=== PATIENT | male | born 1955 | race Caucasian/White ===

== ENCOUNTER 2017-06-21 07:59 | Day surgery (SDC) | payer BC ==
[~2017-06-21 07:59] MED LIST: Sodium Chloride 0.9% 10 ML Syringe FLUSH PRN
[2017-06-21] MEDS ORDERED: Lactated Ringers 1,000 ML IV SCH (09:00)
[2017-06-21] MEDS ORDERED: Propofol 200 MG/20 ML SDV IV ONE (10:00)
[2017-06-21] MEDS ORDERED: Ondansetron 4 MG/2 ML SDV IVPUSH ONE (10:00)
[2017-06-21] MEDS ORDERED: Lactated Ringers 1,000 ML IV ONE (10:00)
[2017-06-21] MEDS ORDERED: Sodium Chloride 0.9% 10 ML Syringe FLUSH PRN (11:00)
[2017-06-21 11:12] VITALS: BP 142/70
--- NOTE | 2017-06-21 17:39 | OR ---
DATE OF OPERATION: 06/21/2017 SURGEON: Herbie Pa MD PREOPERATIVE DIAGNOSES: 1. Cataract left eye. 2. Poor pupillary dilation, left eye, secondary to Flomax. POSTOPERATIVE DIAGNOSES: 1. Cataract left eye. 2. Poor pupillary dilation, left eye, secondary to Flomax. PROCEDURES: 1. Phacoemulsification of cataract left eye with placement of an Osborn model Z9002, 23.0 diopter foldable posterior chamber intraocular lens. 2. Manual pupillary dilation utilizing 6.25 mm Malyugin ring. DESCRIPTION OF PROCEDURES: Peribulbar anesthetic was performed using a mixture of 2% lidocaine with epinephrine and Wydase. The patient was then prepped and draped in usual fashion. A 3 mm fornix-based conjunctival flap was performed at the 10 o'clock position. Hemostasis was obtained using diathermy, and a 2.8 mm grooved near clear corneal incision was made. A stab incision was made into the anterior chamber at the 12 o'clock position and a second stab incision underlying the near clear corneal incision. Viscoat was instilled into the anterior chamber, and because of the patient's poor pupillary dilation, a 6.25 mm Malyugin ring was placed. A continuous tear anterior capsulotomy was then performed. Hydrodissection was accomplished with balanced salt solution and the nucleus removed in a divide and conquer fashion. The remaining cortical material was removed with the irrigation and aspiration unit. Viscoat was again instilled into the anterior chamber, and an Osborn model Z9002, 23.0 diopter foldable posterior chamber intraocular lens was placed into the capsular bag, the haptics being positioned at the 1 and 7 o'clock positions. The Malyugin ring was then removed, and residual viscoelastic was removed from the anterior chamber with the irrigation aspiration unit. The anterior chamber was reformed with Miostat. The wound was checked and noted to be watertight. The conjunctiva was secured in its original position with diathermy. 1 mL of Celestone was injected subconjunctivally. Alphagan P 0.1% and Maxitrol ointment were then placed in the patient's eye. He tolerated the above-mentioned procedures well and there were without complication. EPT was 24 seconds. Postoperative instructions as related to activities, as well as medications, were reviewed with the patient. The patient was instructed to return to see me on the day following surgery for the first postoperative check. The patient was also instructed to contact me prior to that time if the patient were to have any problems. /[id number] DEG/MODL CC: NUNO GROVER MD MTDD
== END 2017-06-21 11:34 | disposition home or self-care (01) ==
LOC: FB.SDS 07:59
PROVIDERS: ATTEND Ophthalmology
DX: E11.36 Type 2 diabetes mellitus with diabetic cataract (principal); E78.00 Pure hypercholesterolemia, unspecified; F32.9 Major depressive disorder, single episode, unspecified; K21.9 Gastro-esophageal reflux disease without esophagitis; E11.22 Type 2 diabetes mellitus with diabetic chronic kidney disease; I12.9 Hypertensive chronic kidney disease with stage 1 through stage 4 chronic kidney disease, or unspecified chronic kidney disease; N18.3 Chronic kidney disease, stage 3 (moderate); H57.09 Other anomalies of pupillary function; T44.6X5A Adverse effect of alpha-adrenoreceptor antagonists, initial encounter; Z79.899 Other long term (current) drug therapy; Z79.84 Long term (current) use of oral hypoglycemic drugs; Z88.8 Allergy status to other drugs, medicaments and biological substances; Z98.890 Other specified postprocedural states
CPT/HCPCS: 66982; 82962; C1780; J2405; J2704; J7120

== ENCOUNTER 2018-12-04 07:26 | Inpatient (IN) | payer BC ==
[2018-12-04] MEDS: Sodium Chloride 0.9% 10 ML Syringe FLUSH PRN ×5 (07:50→18:40)
[2018-12-04] MEDS ORDERED: Morphine 4 MG/ML Syringe IVPUSH ONE ×2 (07:54→07:59)
[2018-12-04] MEDS ORDERED: Morphine 2 MG/ML Syringe IVPUSH ONE ×2 (08:15→09:52)
[2018-12-04] MEDS ORDERED: Iopamidol 755 MG/ML 150 ML Bottle IV ONE (08:28)
--- NOTE | 2018-12-04 09:58 | EDM.PDOC ---
ED HPI GENERAL MEDICAL PROBLEM - General Chief Complaint: Abdominal Pain Stated Complaint: R SIDE PAIN Time Seen by Provider: 12/04/18 07:30 Source of Information: Reports: Patient, Family () History Limitations: Reports: No Limitations - History of Present Illness INITIAL COMMENTS - FREE TEXT/NARRATIVE: 63 y.o.w.m with H/O HTN, NIDDM, daily ETOH use, came to the ED with his due to acute onset of RUQ and RLQ abd. pain, which started last night. No N/V/ D. No trauma, no other acute med issues. BP 149/95 RR 16 Pulse ox 96% on RA Pulse 88 Temp 36.6 Onset Date: 12/03/18 Onset Time: 15:00 Duration: Hour(s):, Getting Worse, Intermittent Location: Reports: Abdomen Quality: Reports: Burning, Dull, Pressure, Throbbing Severity: Moderate Improves with: Reports: Medication, Rest Worsens with: Reports: Eating Associated Symptoms: Reports: No Other Symptoms Right abdomen Pain Score (Numeric/FACES): 7 - Related Data Allergies Allergy/AdvReac Type Severity Reaction Status Date / Time indomethacin sodium Allergy unknown Verified 12/04/18 11:48 [From Indocin] indomethacin [From Indocin] AdvReac Mild Nausea Verified 12/04/18 11:48 Home Meds: Home Meds Atenolol/Chlorthalidone [Tenoretic 100] 0.5 tab PO DAILY 06/17/14 [History] Carboxymethyl/Gly/Poly80/Pf [Refresh Optive Advanced Drops] 1 drop EYEBOTH ASDIRECTED PRN 06/17/14 [History] Fenofibric Acid (Choline) [Trilipix] 135 mg PO DAILY 06/17/14 [History] Lansoprazole [Prevacid] 30 mg PO DAILY 06/17/14 [History] Pravastatin [Pravachol] 40 mg PO DAILY 06/17/14 [History] SitaGLIPtin [Januvia] 100 mg PO DAILY 06/17/14 [History] Venlafaxine HCl [Venlafaxine ER] 150 mg PO DAILY 06/17/14 [History] amLODIPine/Benazepril [Lotrel 5-20 MG] 1 cap PO DAILY 06/17/14 [History] metFORMIN [Glucophage] 500 mg PO BIDM 06/17/14 [History] Cholecalciferol (Vitamin D3) [Vitamin D3] 2,000 unit PO DAILY 06/20/17 [History] Clindamycin HCl 300 mg PO Q6H 06/20/17 [History] Fluticasone Propionate [Flonase Allergy Relief] 2 spray NS DAILY PRN 06/20/17 [ History] Ketotifen [Ketotifen 0.025% Ophth Soln] 5 ml EYEBOTH DAILY PRN 06/20/17 [History ] Rosuvastatin [Crestor] 20 mg PO DAILY 06/20/17 [History] Sulfamethoxazole/Trimethoprim [Sulfamethoxazole-Tmp Ds Tablet] 1 each PO BID [History] Tamsulosin [Tamsulosin 24 Hr] 2 tab PO DAILY 06/20/17 [History] Past Medical History HEENT History: Reports: Cataract Cardiovascular History: Reports: High Cholesterol, Hypertension Gastrointestinal History: Reports: GERD Musculoskeletal History: Reports: Arthritis Psychiatric History: Reports: Depression Endocrine/Metabolic History: Reports: Diabetes, Type II, Obesity/BMI 30+ - Infectious Disease History Infectious Disease History: Reports: Chicken Pox, Measles - Past Surgical History HEENT Surgical History: Reports: Cataract Surgery, Oral Surgery GI Surgical History: Reports: Colonoscopy, EGD, Polypectomy, Other (See Below) Other GI Surgeries/Procedures: Umbilical hernia Musculoskeletal Surgical History: Reports: Arthroscopic Procedure, Shoulder Replacement, Other (See Below) Other Musculoskeletal Surgeries/Procedures:: Rotator cuff surgery Oncologic Surgical History: Reports: None Social & Family History - Family History Family Medical History: Noncontributory Cardiac: Reports: High Cholesterol, Hypertension, MD Respiratory: Reports: Other (See Below) Other Respiratory Family Hisory: MOTHER REURRENT PNEUMONIA : Reports: None OBGYN: Reports: Musculoskeletal: Reports: None Neurological: Reports: None Psychiatric: Reports: Depression Endocrine/Metabolic: Reports: Diabetes, type II Hematologic: Reports: None Oncologic: Reports: Leukemia - Tobacco Use Smoking Status *Q: Former Smoker Used Tobacco, but Quit: Yes Month/Year Tobacco Last Used: 20 years ago - Caffeine Use Caffeine Use: Reports: Soda - Recreational Drug Use Recreational Drug Use: No ED ROS GENERAL - Review of Systems Review Of Systems: See Below Constitutional: Reports: No Symptoms HEENT: Reports: No Symptoms Respiratory: Reports: No Symptoms Cardiovascular: Reports: No Symptoms Endocrine: Reports: No Symptoms GI/Abdominal: Reports: Abdominal Pain : Reports: No Symptoms Musculoskeletal: Reports: No Symptoms Skin: Reports: No Symptoms Neurological: Reports: No Symptoms Psychiatric: Reports: No Symptoms Hematologic/Lymphatic: Reports: No Symptoms Immunologic: Reports: No Symptoms ED EXAM, GI/ABD - Physical Exam Exam: See Below Exam Limited By: No Limitations General Appearance: Alert, WD/WN, Moderate Distress Eyes: Bilateral: Normal Appearance Ears: Normal External Exam Nose: Normal Inspection Throat/Mouth: Normal Inspection, Normal Lips, Normal Voice, No Airway Compromise Head: Atraumatic, Normocephalic Neck: Normal Inspection, Supple, Non-Tender Respiratory/Chest: No Respiratory Distress, Lungs Clear, Normal Breath Sounds, Chest Non-Tender Cardiovascular: Normal Peripheral Pulses, Regular Rate, Rhythm, No Edema, No Gallop GI/Abdominal Exam: Normal Bowel Sounds, Tender (RUQ and RLQ of abdomen) (Male) Exam: No Hernia Rectal (Males) Exam: Deferred Back Exam: Normal Inspection, Full Range of Motion Extremities: Normal Inspection, Normal Range of Motion, Non-Tender, Normal Capillary Refill Neurological: Alert, Oriented, CN II-XII Intact, Normal Cognition, Normal Gait Psychiatric: Normal Affect, Normal Mood Skin Exam: Warm, Dry, Intact, Normal Color, No Rash Lymphatic: No Adenopathy Course - Vital Signs Text/Narrative:: 63 y.o.w.m with H/O HTN, NIDDM, daily ETOH use, came to the ED with his due to acute onset of RUQ and RLQ abd. pain, which started last night. No N/V/ D. No trauma, no other acute med issues. BP 149/95 RR 16 Pulse ox 96% on RA Pulse 88 Temp 36.6 PE: WNWD W M with abd. pain Imaging: CT abd/pelvis: Duodenitis vs acute Pancreatitis U/S abd. limited: 2 0.7 mm galls tone in Gallbladder, CBD nl LFT's no except ALT/AST elevated 44/48 TB, DB nl Labs: Amylase 462, CBC, INR, BMP nl, LFT's no except ALT/AST elevated 44/48 TB, DB nl Alk phos nl. Lactic acid 2.0 nETOH level < 0.03 Impression: Acute Pancreatitis due to Cholelithiasis, H/O ETOH use daily Tx: NS, Morphine, Protonix 9.51 am Consultation: Dr. Rodríguez, Surgeon: U/S of abd. to R/O Gall stones 10.23 am Consultation: Dr. Rodríguez: Admit Pt to the Hospitalist, will see pt during the Day and plans surgery 10.25 am Consultation: Dr. Covarrubias, Hospitalist: Accepted the pt for admission Reexam: Pt was doing fine in the ED Plan: Admit to M/S Last Recorded V/S: Last Vital Signs Temp 37.1 C 12/04/18 11:57 Pulse 84 12/04/18 11:12 Resp 16 12/04/18 11:57 BP 160/75 H 12/04/18 11:57 Pulse Ox 95 12/04/18 11:57 - Orders/Labs/Meds Orders: Active Orders 24 hr Category Date Time Status Abdomen Ltd [US] Stat Exams 12/04/18 09:55 Taken Abdomen Pelvis w Cont [CT] Stat Exams 12/04/18 07:47 Taken Sodium Chloride 0.9% [Normal Saline] 1,000 ml Med 12/04/18 10:45 Active IV ASDIRECTED Sodium Chloride 0.9% [Saline Flush] Med 12/04/18 07:50 Active 10 ml FLUSH ASDIRECTED PRN Medication Orders Sodium Chloride (Normal Saline) 1,000 mls @ 125 mls/hr IV ASDIRECTED MICAH Last Admin: 12/04/18 10:34 Dose: 125 mls/hr Sodium Chloride (Normal Saline) 1,000 mls @ 125 mls/hr IV ASDIRECTED MICAH Morphine Sulfate (Morphine) 2 mg IVPUSH Q2H PRN PRN Reason: Pain (severe 7-10) Last Admin: 12/04/18 12:10 Dose: 2 mg Ondansetron HCl (Zofran) 4 mg IV Q4H PRN PRN Reason: Nausea/Vomiting Sodium Chloride (Saline Flush) 10 ml FLUSH ASDIRECTED PRN PRN Reason: IV Use Last Admin: 12/04/18 12:19 Dose: 10 ml Admin: 12/04/18 10:01 Dose: 10 ml Admin: 12/04/18 08:07 Dose: 10 ml Admin: 12/04/18 07:50 Dose: 10 ml Labs: Laboratory Tests 12/04/18 12/04/18 12/04/18 Range/Units 07:55 07:55 07:55 WBC 10.9 (4.5-12.0) X10-3/uL RBC 4.45 (4.30-5.75) x10(6)uL Hgb 14.1 (13.5-17.8) g/dL Hct 40.1 (30.0-51.3) % MCV 90.2 (80-96) fL MCH 31.7 (27.7-33.6) pg MCHC 35.1 (32.2-35.4) g/dL RDW 12.2 (11.5-15.5) % Plt Count 182 (125-369) X10(3)uL MPV 7.7 (7.4-10.4) fL Neut % (Auto) 81.5 (46-82) % Lymph % (Auto) 10.6 L (13-37) % [place] % (Auto) 5.3 (4-12) % Eos % (Auto) 2 (1.0-5.0) % Baso % (Auto) 1 (0-2) % Neut # (Auto) 8.8 H (1.6-8.3) # Lymph # (Auto) 1.2 (0.6-5.0) # [place] # (Auto) 0.6 (0.0-1.3) # Eos # (Auto) 0.2 (0.0-0.8) # Baso # (Auto) 0.1 (0.0-0.2) # PT 10.1 (8.7-11.1) INR 1.04 (0.89-1.13) Sodium 141 (135-145) mmol/L Potassium 4.7 (3.5-5.3) mmol/L Chloride 103 (100-110) mmol/L Carbon Dioxide 22 (21-32) mmol/L BUN 23 H (7-18) mg/dL Creatinine 1.2 (0.70-1.30) mg/dL Est Cr Clr Drug Dosing TNP Estimated GFR (MDRD) > 60 (>60) BUN/Creatinine Ratio 19.2 (9-20) Glucose 169 H (80-116) mg/dL Lactic Acid (0.4-2.2) mmol/L Calcium 9.9 (8.6-10.2) mg/dL Total Bilirubin (0.1-1.3) mg/dL Direct Bilirubin (0.10-0.20) mg/dL AST (5-25) IU/L ALT (12-36) U/L Alkaline Phosphatase (56-112) IU/L Total Protein (6.0-8.0) g/dL Albumin (3.2-4.6) g/dL Amylase (25-115) U/L Ethyl Alcohol (<0.03) % 12/04/18 12/04/18 12/04/18 Range/Units 07:55 07:55 07:55 WBC (4.5-12.0) X10-3/uL RBC (4.30-5.75) x10(6)uL Hgb (13.5-17.8) g/dL Hct (30.0-51.3) % MCV (80-96) fL MCH (27.7-33.6) pg MCHC (32.2-35.4) g/dL RDW (11.5-15.5) % Plt Count (125-369) X10(3)uL MPV (7.4-10.4) fL Neut % (Auto) (46-82) % Lymph % (Auto) (13-37) % [place] % (Auto) (4-12) % Eos % (Auto) (1.0-5.0) % Baso % (Auto) (0-2) % Neut # (Auto) (1.6-8.3) # Lymph # (Auto) (0.6-5.0) # [place] # (Auto) (0.0-1.3) # Eos # (Auto) (0.0-0.8) # Baso # (Auto) (0.0-0.2) # PT (8.7-11.1) INR (0.89-1.13) Sodium (135-145) mmol/L Potassium (3.5-5.3) mmol/L Chloride (100-110) mmol/L Carbon Dioxide (21-32) mmol/L BUN (7-18) mg/dL Creatinine (0.70-1.30) mg/dL Est Cr Clr Drug Dosing Estimated GFR (MDRD) (>60) BUN/Creatinine Ratio (9-20) Glucose (80-116) mg/dL Lactic Acid 2.0 (0.4-2.2) mmol/L Calcium (8.6-10.2) mg/dL Total Bilirubin 0.4 (0.1-1.3) mg/dL Direct Bilirubin 0.15 (0.10-0.20) mg/dL AST 44 H (5-25) IU/L ALT 49 H (12-36) U/L Alkaline Phosphatase 67 (56-112) IU/L Total Protein 8.2 H (6.0-8.0) g/dL Albumin 3.9 (3.2-4.6) g/dL Amylase 462 H* (25-115) U/L Ethyl Alcohol < 0.03 (<0.03) % Meds: Medications Generic Name Dose Route Start Last Admin Trade Name Freq PRN Reason Stop Dose Admin Sodium Chloride 1,000 mls @ 125 mls/hr 12/04/18 10:45 12/04/18 10:34 Normal Saline IV 125 mls/hr ASDIRECTED MICAH Administration Sodium Chloride 1,000 mls @ 125 mls/hr 12/04/18 10:45 Normal Saline IV ASDIRECTED MICAH Morphine Sulfate 2 mg 12/04/18 10:35 12/04/18 12:10 Morphine IVPUSH 2 mg Q2H PRN Administration Pain (severe 7-10) Ondansetron HCl 4 mg 12/04/18 10:35 Zofran IV Q4H PRN Nausea/Vomiting Sodium Chloride 10 ml 12/04/18 07:50 12/04/18 12:19 Saline Flush FLUSH 10 ml ASDIRECTED PRN Administration IV Use Discontinued Medications Generic Name Dose Route Start Last Admin Trade Name Freq PRN Reason Stop Dose Admin Iopamidol 150 ml 12/04/18 08:28 12/04/18 08:39 Isovue-370 (76%) IV 12/04/18 08:29 116 ml ONETIME ONE Administration Morphine Sulfate 2 mg 12/04/18 08:15 12/04/18 08:07 Morphine IVPUSH 12/04/18 08:16 2 mg ONETIME ONE Administration Morphine Sulfate 2 mg 12/04/18 09:52 12/04/18 09:54 Morphine IVPUSH 12/04/18 09:53 Not Given ONETIME ONE Morphine Sulfate 2 mg 12/04/18 09:52 12/04/18 10:00 Morphine IVPUSH 12/04/18 09:53 2 mg ONETIME ONE Administration Pantoprazole Sodium 40 mg 12/04/18 10:43 12/04/18 12:18 Protonix Iv IVPUSH 12/04/18 10:44 40 mg ONETIME ONE Administration Departure - Departure Time of Disposition: 11:00 Disposition: Refer to Observation Condition: Fair Clinical Impression: Gallstone pancreatitis - Discharge Information - My Orders Last 24 Hours: My Active Orders 12/04/18 07:47 Abdomen Pelvis w Cont [CT] Stat 12/04/18 07:50 Sodium Chloride 0.9% [Saline Flush] 10 ml FLUSH ASDIRECTED PRN 12/04/18 09:55 Abdomen Ltd [US] Stat 12/04/18 10:45 Sodium Chloride 0.9% [Normal Saline] 1,000 ml IV ASDIRECTED - Assessment/Plan Last 24 Hours: My Active Orders 12/04/18 07:47 Abdomen Pelvis w Cont [CT] Stat 12/04/18 07:50 Sodium Chloride 0.9% [Saline Flush] 10 ml FLUSH ASDIRECTED PRN 12/04/18 09:55 Abdomen Ltd [US] Stat 12/04/18 10:45 Sodium Chloride 0.9% [Normal Saline] 1,000 ml IV ASDIRECTED
[2018-12-04] MEDS: Sodium Chloride 0.9% 1,000 ML IV SCH (10:34)
[2018-12-04] MEDS ORDERED: Ondansetron 4 MG/2 ML SDV IV PRN (10:35)
[2018-12-04] MEDS ORDERED: Pantoprazole 40 MG Vial IVPUSH ONE (10:43)
[2018-12-04] MEDS ORDERED: Sodium Chloride 0.9% 1,000 ML IV SCH (10:45)
[2018-12-04] MEDS: Morphine 2 MG/ML Syringe IVPUSH PRN ×3 (12:10→18:37)
--- NOTE | 2018-12-04 12:51 | PCM.HP ---
H&P History of Present Illness - General Date of Service: 12/04/18 Admit Problem/Dx: Admission Diagnosis/Problem Admission Diagnosis/Problem Gallstone pancreatitis Source of Information: Patient History Limitations: Reports: No Limitations - History of Present Illness Initial Comments - Free Text/Narative: This is a 63-year-old male patient started having right upper quadrant abdominal pain last night. Got worse and came to the ER was found to have gallstone pancreatitis. He was admitted. Patient some morphine. His pain is right upper quadrant that does not radiate anywhere. His little nausea but no vomiting. He says he has some diarrhea but no abnormal color stools or blood in his stool. No dysuria, pyuria, hematuria. No fevers or chills. Right abdomen Pain Score (Numeric/FACES): 4 - Related Data Allergies/Adverse Reactions: Allergies Allergy/AdvReac Type Severity Reaction Status Date / Time indomethacin sodium Allergy unknown Verified 12/04/18 11:48 [From Indocin] indomethacin [From Indocin] AdvReac Mild Nausea Verified 12/04/18 11:48 Home Medications: Home Meds Atenolol/Chlorthalidone [Tenoretic 100] 0.5 tab PO DAILY 06/17/14 [History] Carboxymethyl/Gly/Poly80/Pf [Refresh Optive Advanced Drops] 1 drop EYEBOTH ASDIRECTED PRN 06/17/14 [History] Fenofibric Acid (Choline) [Trilipix] 135 mg PO DAILY 06/17/14 [History] Lansoprazole [Prevacid] 30 mg PO DAILY 06/17/14 [History] Pravastatin [Pravachol] 40 mg PO DAILY 06/17/14 [History] SitaGLIPtin [Januvia] 100 mg PO DAILY 06/17/14 [History] Venlafaxine HCl [Venlafaxine ER] 150 mg PO DAILY 06/17/14 [History] amLODIPine/Benazepril [Lotrel 5-20 MG] 1 cap PO DAILY 06/17/14 [History] metFORMIN [Glucophage] 500 mg PO BIDM 06/17/14 [History] Cholecalciferol (Vitamin D3) [Vitamin D3] 2,000 unit PO DAILY 06/20/17 [History] Clindamycin HCl 300 mg PO Q6H 06/20/17 [History] Fluticasone Propionate [Flonase Allergy Relief] 2 spray NS DAILY PRN 06/20/17 [ History] Ketotifen [Ketotifen 0.025% Ophth Soln] 5 ml EYEBOTH DAILY PRN 06/20/17 [History ] Rosuvastatin [Crestor] 20 mg PO DAILY 06/20/17 [History] Sulfamethoxazole/Trimethoprim [Sulfamethoxazole-Tmp Ds Tablet] 1 each PO BID [History] Tamsulosin [Tamsulosin 24 Hr] 2 tab PO DAILY 06/20/17 [History] Past Medical History HEENT History: Reports: Cataract Cardiovascular History: Reports: High Cholesterol, Hypertension Gastrointestinal History: Reports: GERD, Pancreatitis Genitourinary History: Reports: Prostate Disorder Musculoskeletal History: Reports: Arthritis Psychiatric History: Reports: Depression Endocrine/Metabolic History: Reports: Diabetes, Type II, Obesity/BMI 30+ Dermatologic History: Reports: Venous Stasis Dermatitis - Infectious Disease History Infectious Disease History: Reports: Chicken Pox, Measles - Past Surgical History HEENT Surgical History: Reports: Cataract Surgery, Oral Surgery GI Surgical History: Reports: Colonoscopy, EGD, Polypectomy, Other (See Below) Other GI Surgeries/Procedures: Umbilical hernia-not repaired Male Surgical History: Reports: None Musculoskeletal Surgical History: Reports: Arthroscopic Procedure, Shoulder Replacement, Other (See Below) Other Musculoskeletal Surgeries/Procedures:: Rotator cuff surgery Oncologic Surgical History: Reports: None Social & Family History - Family History Family Medical History: Noncontributory Cardiac: Reports: High Cholesterol, Hypertension, HI Respiratory: Reports: Other (See Below) Other Respiratory Family Hisory: MOTHER REURRENT PNEUMONIA : Reports: None OBGYN: Reports: Musculoskeletal: Reports: None Neurological: Reports: None Psychiatric: Reports: Depression Endocrine/Metabolic: Reports: Diabetes, type II Hematologic: Reports: None Oncologic: Reports: Leukemia - Tobacco Use Smoking Status *Q: Never Smoker Used Tobacco, but Quit: Yes Month/Year Tobacco Last Used: 1999 Second Hand Smoke Exposure: No - Caffeine Use Caffeine Use: Reports: Soda - Alcohol Use Days Per Week of Alcohol Use: 7 Number of Drinks Per Day: 4 Total Drinks Per Week: 28 Date of Last Drink: 12/03/18 Time of Last Drink: 18:00 - Recreational Drug Use Recreational Drug Use: No H&P Review of Systems - Review of Systems: Review Of Systems: See Below General: Reports: No Symptoms HEENT: Reports: No Symptoms Pulmonary: Reports: No Symptoms Cardiovascular: Reports: No Symptoms Gastrointestinal: Reports: Abdominal Pain, Diarrhea. Denies: Vomiting Genitourinary: Reports: No Symptoms Musculoskeletal: Reports: No Symptoms Skin: Reports: Other (Chronic rash ankles bilateral) Neurological: Reports: No Symptoms Hematologic/Lymphatic: Reports: No Symptoms Immunologic: Reports: No Symptoms Exam - Exam Exam: See Below - Vital Signs Vital Signs: Last Vital Signs Temp 98.8 F 12/04/18 11:57 Pulse 84 12/04/18 11:12 Resp 16 12/04/18 11:57 BP 160/75 H 12/04/18 11:57 Pulse Ox 95 12/04/18 11:57 Weight: 220 lb 9.6 oz - Exam General: Alert, Oriented, Cooperative HEENT: Normal Nasal Septum, Posterior Pharynx Clear, TMs Clear Neck: Supple, Trachea Midline Lungs: Clear to Auscultation, Normal Respiratory Effort Cardiovascular: Regular Rate, Regular Rhythm, Normal S1, Irregular Rhythm, Systolic Murmur, Diastolic Murmur GI/Abdominal Exam: Distended, Guarding, Tender. No: Hepatomegaly, Splenomegaly Back Exam: Normal Inspection Extremities: Normal Inspection, Non-Tender Skin: Other (Erythematous patch bilateral ankles) Neuro Extensive - Mental Status: Alert, Oriented x3, Normal Mood/Affect, Normal Cognition, Memory Intact Neuro Extensive - Motor, Sensory, Reflexes: Normal Gait Psychiatric: Alert, Normal Affect, Normal Mood - Patient Data Lab Results Last 24 hrs: Laboratory Results - last 24 hr 12/04/18 12/04/18 12/04/18 Range/Units 07:55 07:55 07:55 WBC 10.9 (4.5-12.0) X10-3/uL RBC 4.45 (4.30-5.75) x10(6)uL Hgb 14.1 (13.5-17.8) g/dL Hct 40.1 (30.0-51.3) % MCV 90.2 (80-96) fL MCH 31.7 (27.7-33.6) pg MCHC 35.1 (32.2-35.4) g/dL RDW 12.2 (11.5-15.5) % Plt Count 182 (125-369) X10(3)uL MPV 7.7 (7.4-10.4) fL Neut % (Auto) 81.5 (46-82) % Lymph % (Auto) 10.6 L (13-37) % [place] % (Auto) 5.3 (4-12) % Eos % (Auto) 2 (1.0-5.0) % Baso % (Auto) 1 (0-2) % Neut # (Auto) 8.8 H (1.6-8.3) # Lymph # (Auto) 1.2 (0.6-5.0) # [place] # (Auto) 0.6 (0.0-1.3) # Eos # (Auto) 0.2 (0.0-0.8) # Baso # (Auto) 0.1 (0.0-0.2) # PT 10.1 (8.7-11.1) INR 1.04 (0.89-1.13) Sodium 141 (135-145) mmol/L Potassium 4.7 (3.5-5.3) mmol/L Chloride 103 (100-110) mmol/L Carbon Dioxide 22 (21-32) mmol/L BUN 23 H (7-18) mg/dL Creatinine 1.2 (0.70-1.30) mg/dL Est Cr Clr Drug Dosing TNP Estimated GFR (MDRD) > 60 (>60) BUN/Creatinine Ratio 19.2 (9-20) Glucose 169 H (80-116) mg/dL Lactic Acid (0.4-2.2) mmol/L Calcium 9.9 (8.6-10.2) mg/dL Total Bilirubin (0.1-1.3) mg/dL Direct Bilirubin (0.10-0.20) mg/dL AST (5-25) IU/L ALT (12-36) U/L Alkaline Phosphatase (56-112) IU/L Total Protein (6.0-8.0) g/dL Albumin (3.2-4.6) g/dL Amylase (25-115) U/L Ethyl Alcohol (<0.03) % 12/04/18 12/04/18 12/04/18 Range/Units 07:55 07:55 07:55 WBC (4.5-12.0) X10-3/uL RBC (4.30-5.75) x10(6)uL Hgb (13.5-17.8) g/dL Hct (30.0-51.3) % MCV (80-96) fL MCH (27.7-33.6) pg MCHC (32.2-35.4) g/dL RDW (11.5-15.5) % Plt Count (125-369) X10(3)uL MPV (7.4-10.4) fL Neut % (Auto) (46-82) % Lymph % (Auto) (13-37) % [place] % (Auto) (4-12) % Eos % (Auto) (1.0-5.0) % Baso % (Auto) (0-2) % Neut # (Auto) (1.6-8.3) # Lymph # (Auto) (0.6-5.0) # [place] # (Auto) (0.0-1.3) # Eos # (Auto) (0.0-0.8) # Baso # (Auto) (0.0-0.2) # PT (8.7-11.1) INR (0.89-1.13) Sodium (135-145) mmol/L Potassium (3.5-5.3) mmol/L Chloride (100-110) mmol/L Carbon Dioxide (21-32) mmol/L BUN (7-18) mg/dL Creatinine (0.70-1.30) mg/dL Est Cr Clr Drug Dosing Estimated GFR (MDRD) (>60) BUN/Creatinine Ratio (9-20) Glucose (80-116) mg/dL Lactic Acid 2.0 (0.4-2.2) mmol/L Calcium (8.6-10.2) mg/dL Total Bilirubin 0.4 (0.1-1.3) mg/dL Direct Bilirubin 0.15 (0.10-0.20) mg/dL AST 44 H (5-25) IU/L ALT 49 H (12-36) U/L Alkaline Phosphatase 67 (56-112) IU/L Total Protein 8.2 H (6.0-8.0) g/dL Albumin 3.9 (3.2-4.6) g/dL Amylase 462 H* (25-115) U/L Ethyl Alcohol < 0.03 (<0.03) % Result Diagrams: 12/04/18 07:55 12/04/18 07:55 - Problem List (1) Acute gallstone pancreatitis SNOMED Code(s): 871083087 ICD Code: K85.10 - BILIARY ACUTE PANCREATITIS WITHOUT NECROSIS OR INFECTION Status: Acute Current Visit: Yes (2) Palliative care status SNOMED Code(s): 824359408 ICD Code: Z51.5 - ENCOUNTER FOR PALLIATIVE CARE Status: Acute Current Visit: Yes (3) Diabetes SNOMED Code(s): 92270639 ICD Code: E11.9 - TYPE 2 DIABETES MELLITUS WITHOUT COMPLICATIONS Status: Acute Current Visit: No Qualifiers: Diabetes mellitus type: type 2 Diabetes mellitus exterminator helper insulin use: without prison use (4) Hypertension SNOMED Code(s): 12359693 ICD Code: I10 - ESSENTIAL (PRIMARY) HYPERTENSION Status: Acute Current Visit: No (5) Hyperlipidemia SNOMED Code(s): 34927177 ICD Code: E78.5 - HYPERLIPIDEMIA, UNSPECIFIED Status: Acute Current Visit : No (6) Chronic alcohol use SNOMED Code(s): 181986 ICD Code: Z72.89 - OTHER PROBLEMS RELATED TO LIFESTYLE Status: Acute Current Visit: Yes Problem List Initiated/Reviewed/Updated: Yes Orders Last 24hrs: Active Orders 24 hr Category Date Time Status Patient Status [ADT] Routine ADT 12/04/18 10:35 Active Notify Provider Consults [RC] ASDIRECTED Care 12/04/18 10:40 Active Oxygen Therapy [RC] PRN Care 12/04/18 10:35 Active Up With Assistance [RC] ASDIRECTED Care 12/04/18 10:35 Active VTE/DVT Education [RC] Per Unit Routine Care 12/04/18 10:35 Active Vital Signs [RC] Q4H Care 12/04/18 10:35 Active Consult to Physician [CONS] Routine Cons 12/04/18 10:35 Ordered Nothing per Oral Now Diet [DIET] Diet 12/04/18 Breakfast Ordered Abdomen Ltd [US] Stat Exams 12/04/18 09:55 Taken Abdomen Pelvis w Cont [CT] Stat Exams 12/04/18 07:47 Taken Morphine Med 12/04/18 10:35 Active 2 mg IVPUSH Q2H PRN Ondansetron [Zofran] Med 12/04/18 10:35 Active 4 mg IV Q4H PRN Sodium Chloride 0.9% [Normal Saline] 1,000 ml Med 12/04/18 10:45 Active IV ASDIRECTED Sodium Chloride 0.9% [Normal Saline] 1,000 ml Med 12/04/18 10:45 Active IV ASDIRECTED Sodium Chloride 0.9% [Saline Flush] Med 12/04/18 07:50 Active 10 ml FLUSH ASDIRECTED PRN Resuscitation Status Routine Resus Stat 12/04/18 10:35 Ordered Medication Orders Sodium Chloride (Normal Saline) 1,000 mls @ 125 mls/hr IV ASDIRECTED MICAH Last Admin: 12/04/18 10:34 Dose: 125 mls/hr Sodium Chloride (Normal Saline) 1,000 mls @ 125 mls/hr IV ASDIRECTED MICAH Morphine Sulfate (Morphine) 2 mg IVPUSH Q2H PRN PRN Reason: Pain (severe 7-10) Last Admin: 12/04/18 12:10 Dose: 2 mg Ondansetron HCl (Zofran) 4 mg IV Q4H PRN PRN Reason: Nausea/Vomiting Sodium Chloride (Saline Flush) 10 ml FLUSH ASDIRECTED PRN PRN Reason: IV Use Last Admin: 12/04/18 12:19 Dose: 10 ml Admin: 12/04/18 10:01 Dose: 10 ml Admin: 12/04/18 08:07 Dose: 10 ml Admin: 12/04/18 07:50 Dose: 10 ml Assessment/Plan Comment:: 1. Admit to inpatient. 2. has been consult to see 3. Nothing by mouth 4. IV fluids 5. Hold off on Lovenox until we find out what surgery wants to do 6. Morphine for pain control. 7. Pills with sips.
[2018-12-04] MEDS ORDERED: Ketotifen 0.025% Ophth Soln 5 ML Bottle EYEBOTH PRN (17:31)
[2018-12-04] MEDS: Enoxaparin 40 MG/0.4 ML Syringe SUBCUT SCH (18:29)
[2018-12-05] MEDS: Morphine 2 MG/ML Syringe IVPUSH PRN ×3 (00:10→19:15)
[2018-12-05] MEDS: Sodium Chloride 0.9% 1,000 ML IV SCH ×3 (02:48→18:55)
--- NOTE | 2018-12-05 07:53 | PCM.PN ---
- General Info Date of Service: 12/05/18 Admission Dx/Problem (Free Text): Gallstone Pancreatitis Functional Status: Reports: Other (Pain remains is abdomen but improved. Did not require pain medication since midnight) - Review of Systems General: Reports: Chills (mild last night but none this am) Pulmonary: Denies: Shortness of Breath Cardiovascular: Denies: Chest Pain Gastrointestinal: Denies: Nausea (mild upon admission but now cleared), Vomiting Genitourinary: Denies: Dysuria Musculoskeletal: Denies: Leg Pain - Patient Data Vitals - Most Recent: Last Vital Signs Temp 99.9 F 12/05/18 04:00 Pulse 87 12/05/18 04:00 Resp 18 12/05/18 04:00 BP 142/82 H 12/05/18 04:00 Pulse Ox 92 L 12/05/18 04:00 Weight - Most Recent: 220 lb 9.6 oz I&O - Last 24 Hours: Intake & Output 12/04/18 12/05/18 12/05/18 22:59 06:59 14:59 Intake Total 1373 1081 Output Total 725 Balance 1373 356 Lab Results Last 24 Hours: Laboratory Results - last 24 hr 12/04/18 12/04/18 12/04/18 Range/Units 07:55 07:55 07:55 WBC 10.9 (4.5-12.0) X10-3/uL RBC 4.45 (4.30-5.75) x10(6)uL Hgb 14.1 (13.5-17.8) g/dL Hct 40.1 (30.0-51.3) % MCV 90.2 (80-96) fL MCH 31.7 (27.7-33.6) pg MCHC 35.1 (32.2-35.4) g/dL RDW 12.2 (11.5-15.5) % Plt Count 182 (125-369) X10(3)uL MPV 7.7 (7.4-10.4) fL Neut % (Auto) 81.5 (46-82) % Lymph % (Auto) 10.6 L (13-37) % [place] % (Auto) 5.3 (4-12) % Eos % (Auto) 2 (1.0-5.0) % Baso % (Auto) 1 (0-2) % Neut # (Auto) 8.8 H (1.6-8.3) # Lymph # (Auto) 1.2 (0.6-5.0) # [place] # (Auto) 0.6 (0.0-1.3) # Eos # (Auto) 0.2 (0.0-0.8) # Baso # (Auto) 0.1 (0.0-0.2) # PT 10.1 (8.7-11.1) INR 1.04 (0.89-1.13) Sodium 141 (135-145) mmol/L Potassium 4.7 (3.5-5.3) mmol/L Chloride 103 (100-110) mmol/L Carbon Dioxide 22 (21-32) mmol/L BUN 23 H (7-18) mg/dL Creatinine 1.2 (0.70-1.30) mg/dL Est Cr Clr Drug Dosing TNP Estimated GFR (MDRD) > 60 (>60) BUN/Creatinine Ratio 19.2 (9-20) Glucose 169 H (80-116) mg/dL POC Glucose (80-116) mg/dL Lactic Acid (0.4-2.2) mmol/L Calcium 9.9 (8.6-10.2) mg/dL Total Bilirubin (0.1-1.3) mg/dL Direct Bilirubin (0.10-0.20) mg/dL AST (5-25) IU/L ALT (12-36) U/L Alkaline Phosphatase (56-112) IU/L Total Protein (6.0-8.0) g/dL Albumin (3.2-4.6) g/dL Globulin g/dL Albumin/Globulin Ratio Amylase (25-115) U/L Ethyl Alcohol (<0.03) % 12/04/18 12/04/18 12/04/18 Range/Units 07:55 07:55 07:55 WBC (4.5-12.0) X10-3/uL RBC (4.30-5.75) x10(6)uL Hgb (13.5-17.8) g/dL Hct (30.0-51.3) % MCV (80-96) fL MCH (27.7-33.6) pg MCHC (32.2-35.4) g/dL RDW (11.5-15.5) % Plt Count (125-369) X10(3)uL MPV (7.4-10.4) fL Neut % (Auto) (46-82) % Lymph % (Auto) (13-37) % [place] % (Auto) (4-12) % Eos % (Auto) (1.0-5.0) % Baso % (Auto) (0-2) % Neut # (Auto) (1.6-8.3) # Lymph # (Auto) (0.6-5.0) # [place] # (Auto) (0.0-1.3) # Eos # (Auto) (0.0-0.8) # Baso # (Auto) (0.0-0.2) # PT (8.7-11.1) INR (0.89-1.13) Sodium (135-145) mmol/L Potassium (3.5-5.3) mmol/L Chloride (100-110) mmol/L Carbon Dioxide (21-32) mmol/L BUN (7-18) mg/dL Creatinine (0.70-1.30) mg/dL Est Cr Clr Drug Dosing Estimated GFR (MDRD) (>60) BUN/Creatinine Ratio (9-20) Glucose (80-116) mg/dL POC Glucose (80-116) mg/dL Lactic Acid 2.0 (0.4-2.2) mmol/L Calcium (8.6-10.2) mg/dL Total Bilirubin 0.4 (0.1-1.3) mg/dL Direct Bilirubin 0.15 (0.10-0.20) mg/dL AST 44 H (5-25) IU/L ALT 49 H (12-36) U/L Alkaline Phosphatase 67 (56-112) IU/L Total Protein 8.2 H (6.0-8.0) g/dL Albumin 3.9 (3.2-4.6) g/dL Globulin g/dL Albumin/Globulin Ratio Amylase 462 H* (25-115) U/L Ethyl Alcohol < 0.03 (<0.03) % 12/04/18 12/05/18 12/05/18 Range/Units 19:35 06:12 06:35 WBC 10.4 (4.5-12.0) X10-3/uL RBC 4.14 L (4.30-5.75) x10(6)uL Hgb 12.7 L (13.5-17.8) g/dL Hct 37.3 (30.0-51.3) % MCV 90.1 (80-96) fL MCH 30.7 (27.7-33.6) pg MCHC 34.1 (32.2-35.4) g/dL RDW 12.3 (11.5-15.5) % Plt Count 152 (125-369) X10(3)uL MPV 7.4 (7.4-10.4) fL Neut % (Auto) 83.5 H (46-82) % Lymph % (Auto) 8.3 L (13-37) % [place] % (Auto) 6.5 (4-12) % Eos % (Auto) 1 (1.0-5.0) % Baso % (Auto) 0 (0-2) % Neut # (Auto) 8.7 H (1.6-8.3) # Lymph # (Auto) 0.9 (0.6-5.0) # [place] # (Auto) 0.7 (0.0-1.3) # Eos # (Auto) 0.1 (0.0-0.8) # Baso # (Auto) 0.0 (0.0-0.2) # PT (8.7-11.1) INR (0.89-1.13) Sodium (135-145) mmol/L Potassium (3.5-5.3) mmol/L Chloride (100-110) mmol/L Carbon Dioxide (21-32) mmol/L BUN (7-18) mg/dL Creatinine (0.70-1.30) mg/dL Est Cr Clr Drug Dosing Estimated GFR (MDRD) (>60) BUN/Creatinine Ratio (9-20) Glucose (80-116) mg/dL POC Glucose 149 H 174 H (80-116) mg/dL Lactic Acid (0.4-2.2) mmol/L Calcium (8.6-10.2) mg/dL Total Bilirubin (0.1-1.3) mg/dL Direct Bilirubin (0.10-0.20) mg/dL AST (5-25) IU/L ALT (12-36) U/L Alkaline Phosphatase (56-112) IU/L Total Protein (6.0-8.0) g/dL Albumin (3.2-4.6) g/dL Globulin g/dL Albumin/Globulin Ratio Amylase (25-115) U/L Ethyl Alcohol (<0.03) % 12/05/18 Range/Units 06:35 WBC (4.5-12.0) X10-3/uL RBC (4.30-5.75) x10(6)uL Hgb (13.5-17.8) g/dL Hct (30.0-51.3) % MCV (80-96) fL MCH (27.7-33.6) pg MCHC (32.2-35.4) g/dL RDW (11.5-15.5) % Plt Count (125-369) X10(3)uL MPV (7.4-10.4) fL Neut % (Auto) (46-82) % Lymph % (Auto) (13-37) % [place] % (Auto) (4-12) % Eos % (Auto) (1.0-5.0) % Baso % (Auto) (0-2) % Neut # (Auto) (1.6-8.3) # Lymph # (Auto) (0.6-5.0) # [place] # (Auto) (0.0-1.3) # Eos # (Auto) (0.0-0.8) # Baso # (Auto) (0.0-0.2) # PT (8.7-11.1) INR (0.89-1.13) Sodium 141 (135-145) mmol/L Potassium 4.3 (3.5-5.3) mmol/L Chloride 105 (100-110) mmol/L Carbon Dioxide 26 (21-32) mmol/L BUN 13 D (7-18) mg/dL Creatinine 1.1 (0.70-1.30) mg/dL Est Cr Clr Drug Dosing 60.57 Estimated GFR (MDRD) > 60 (>60) BUN/Creatinine Ratio 11.8 (9-20) Glucose 180 H (80-116) mg/dL POC Glucose (80-116) mg/dL Lactic Acid (0.4-2.2) mmol/L Calcium 8.8 (8.6-10.2) mg/dL Total Bilirubin 0.8 (0.1-1.3) mg/dL Direct Bilirubin (0.10-0.20) mg/dL AST 22 D (5-25) IU/L ALT 29 D (12-36) U/L Alkaline Phosphatase 57 (56-112) IU/L Total Protein 7.2 (6.0-8.0) g/dL Albumin 3.1 L (3.2-4.6) g/dL Globulin 4.1 g/dL Albumin/Globulin Ratio 0.8 Amylase 180 H (25-115) U/L Ethyl Alcohol (<0.03) % Med Orders - Current: Current Medications Amlodipine Besylate (Norvasc) 5 mg PO DAILY [facility] Atenolol/Chlorthalidone (Tenoretic 50) 1 tab PO DAILY [facility] [place] Benazepril HCl (Lotensin) 20 mg PO DAILY [facility] [place] Enoxaparin Sodium (Lovenox) 40 mg SUBCUT Q24H [facility] [place] Last Admin: 12/04/18 18:29 Dose: 40 mg Sodium Chloride (Normal Saline) 1,000 mls @ 125 mls/hr IV ASDIRECTED [facility] [place] Last Admin: 12/05/18 02:48 Dose: 125 mls/hr Sodium Chloride (Normal Saline) 1,000 mls @ 125 mls/hr IV ASDIRECTED [facility] [place] Last Admin: 12/04/18 18:45 Dose: 125 mls/hr Ketotifen Fumarate (Ketotifen 0.025% Ophth Soln) 0 ml EYEBOTH DAILY PRN PRN Reason: Dry Eyes Morphine Sulfate (Morphine) 2 mg IVPUSH Q2H PRN PRN Reason: Pain (severe 7-10) Last Admin: 12/05/18 00:10 Dose: 2 mg Ondansetron HCl (Zofran) 4 mg IV Q4H PRN PRN Reason: Nausea/Vomiting Pantoprazole Sodium (Protonix) 40 mg PO ACBREAKFAST [facility] [place] Sitagliptin Phosphate (Januvia) 100 mg PO DAILY [facility] [place] Sodium Chloride (Saline Flush) 10 ml FLUSH ASDIRECTED PRN PRN Reason: IV Use Last Admin: 12/04/18 18:40 Dose: 10 ml Venlafaxine HCl (Effexor Xr) 150 mg PO DAILY MICAH Discontinued Medications Iopamidol (Isovue-370 (76%)) 150 ml IV ONETIME ONE Stop: 12/04/18 08:29 Last Admin: 12/04/18 08:39 Dose: 116 ml Morphine Sulfate (Morphine) 2 mg IVPUSH ONETIME ONE Stop: 12/04/18 08:16 Last Admin: 12/04/18 08:07 Dose: 2 mg Morphine Sulfate (Morphine) 2 mg IVPUSH ONETIME ONE Stop: 12/04/18 09:53 Last Admin: 12/04/18 09:54 Dose: Not Given Morphine Sulfate (Morphine) 2 mg IVPUSH ONETIME ONE Stop: 12/04/18 09:53 Last Admin: 12/04/18 10:00 Dose: 2 mg Pantoprazole Sodium (Protonix Iv) 40 mg IVPUSH ONETIME ONE Stop: 12/04/18 10:44 Last Admin: 12/04/18 12:18 Dose: 40 mg - Exam General: Alert, Oriented Lungs: Normal Respiratory Effort GI/Abdominal Exam: Soft, No Mass, Tender (mild on right side). No: Guarding Extremities: Non-Tender, No Pedal Edema - Problem List Review Problem List Initiated/Reviewed/Updated: Yes - My Orders Last 24 Hours: My Active Orders 12/06/18 05:00 AMYLASE [CHEM] Routine CBC WITH AUTO DIFF [HEME] Routine COMPREHENSIVE METABOLIC PN,CMP [CHEM] Routine - Assessment Assessment:: Gallstone Pancreatitis Improving Amylase better this am, WBC normal, Calcium normal, Bilirubin normal - Plan Plan:: Will continue NPO with IV hydration encourage ambulation and IS recheck labs tomorrow and if continuing to improve will plan cholecystectomy soon
--- NOTE | 2018-12-05 07:55 | CONS ---
DATE OF CONSULTATION: 12/04/2018 HISTORY: This 63-year-old male was admitted through the emergency room this morning with complaints of approximately 12-hour history of abdominal pain. The pain began in the right abdomen approximately 2100 hours last night while the patient was attempting to sleep. The pain persisted through the night. It was associated with some nausea, but no vomiting and no diarrhea. Upon presentation this morning, the patient was evaluated, and a CT scan was performed, which showed inflammation in the retroperitoneum near the pancreas. Also, an ultrasound was performed, which showed multiple small gallstones. The patient's laboratory studies were reviewed. These show a normal CBC without white blood cell count elevation and normal chemistry profile with normal liver function tests, including a normal bilirubin. The patient states he has not had pain like this before. He denies any history of fatty food intolerance, although does admit to avoiding spicy foods because of heartburn. PAST MEDICAL HISTORY: Shows no previous abdominal surgery. He has had knee and shoulder surgery, although no joint replacements. He carries diagnoses of hypertension and also a question of early diabetes. CURRENT MEDICATIONS: 1. Metformin 500 mg b.i.d. 2. Amlodipine. 3. Benazepril one tablet daily. 4. Venlafaxine 150 mg daily. 5. Januvia 100 mg daily. 6. Crestor 20 mg daily. 7. Pepcid 30 mg daily. 8. He also takes vitamins. 9. Atenolol/Chlorthalidone 1/2 tab daily. ALLERGIES: He is allergic to indomethacin. SOCIAL HISTORY: He does not smoke. He does admit to alcohol use of 3 to 4 beers per day. FAMILY HISTORY: Negative for known anesthetic complications. SOCIAL HISTORY: The patient is . 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 REVIEW OF SYSTEMS: He denies any recent cough, cold, or sore throat symptoms. He has not been experiencing any chest pain or palpitations. No shortness of breath or cough. Generally, bowel function has been satisfactory, and he has not had any difficulty voiding. He does occasionally have some arthritis pain, but no extremity swelling or weakness. PHYSICAL EXAMINATION: VITAL SIGNS: Temperature is 98.8 upon admission and more recently 100.1, blood pressure is 160/75, weight is 220 pounds. GENERAL: The patient is alert adult male. He is in no acute distress, but does complain of abdominal pain. HEENT: Head is normocephalic. There is no scleral icterus. No cervical masses are noted. HEART: Regular without murmur. LUNGS: Clear. ABDOMEN: Soft. There is no distention. I do not feel any abdominal masses. There is mild tenderness to direct palpation in the right upper quadrant. No guarding is noted at this time. EXTREMITIES: Show no calf tenderness or ankle edema. IMPRESSION: 1. Gallstone pancreatitis. 2. History of hypertension. 3. Diabetes. 4. Hyperlipidemia. 5. History of alcohol use. RECOMMENDATIONS: Agree with current plan of n.p.o. and IV hydration. We will monitor his amylase levels and once inflammation has subsided, then would recommend proceeding with cholecystectomy to prevent future episodes. I have reviewed this with the patient, and he agrees to the proposed plan. Followup laboratory studies are ordered for tomorrow morning. /[id number] TIKI/SHAWN
--- NOTE | 2018-12-05 08:00 | PCM.PN ---
- General Info Date of Service: 12/05/18 Admission Dx/Problem (Free Text): Patient states his abdominal pain is better and nauseous less. He denies any fevers or chills. - Patient Data Vitals - Most Recent: Last Vital Signs Temp 99.9 F 12/05/18 04:00 Pulse 87 12/05/18 04:00 Resp 18 12/05/18 04:00 BP 142/82 H 12/05/18 04:00 Pulse Ox 92 L 12/05/18 04:00 Weight - Most Recent: 220 lb 9.6 oz I&O - Last 24 Hours: Intake & Output 12/04/18 12/05/18 12/05/18 22:59 06:59 14:59 Intake Total 1373 1081 Output Total 725 Balance 1373 356 Lab Results Last 24 Hours: Laboratory Results - last 24 hr 12/04/18 12/04/18 12/04/18 Range/Units 07:55 07:55 07:55 WBC 10.9 (4.5-12.0) X10-3/uL RBC 4.45 (4.30-5.75) x10(6)uL Hgb 14.1 (13.5-17.8) g/dL Hct 40.1 (30.0-51.3) % MCV 90.2 (80-96) fL MCH 31.7 (27.7-33.6) pg MCHC 35.1 (32.2-35.4) g/dL RDW 12.2 (11.5-15.5) % Plt Count 182 (125-369) X10(3)uL MPV 7.7 (7.4-10.4) fL Neut % (Auto) 81.5 (46-82) % Lymph % (Auto) 10.6 L (13-37) % [place] % (Auto) 5.3 (4-12) % Eos % (Auto) 2 (1.0-5.0) % Baso % (Auto) 1 (0-2) % Neut # (Auto) 8.8 H (1.6-8.3) # Lymph # (Auto) 1.2 (0.6-5.0) # [place] # (Auto) 0.6 (0.0-1.3) # Eos # (Auto) 0.2 (0.0-0.8) # Baso # (Auto) 0.1 (0.0-0.2) # PT 10.1 (8.7-11.1) INR 1.04 (0.89-1.13) Sodium 141 (135-145) mmol/L Potassium 4.7 (3.5-5.3) mmol/L Chloride 103 (100-110) mmol/L Carbon Dioxide 22 (21-32) mmol/L BUN 23 H (7-18) mg/dL Creatinine 1.2 (0.70-1.30) mg/dL Est Cr Clr Drug Dosing TNP Estimated GFR (MDRD) > 60 (>60) BUN/Creatinine Ratio 19.2 (9-20) Glucose 169 H (80-116) mg/dL POC Glucose (80-116) mg/dL Lactic Acid (0.4-2.2) mmol/L Calcium 9.9 (8.6-10.2) mg/dL Total Bilirubin (0.1-1.3) mg/dL Direct Bilirubin (0.10-0.20) mg/dL AST (5-25) IU/L ALT (12-36) U/L Alkaline Phosphatase (56-112) IU/L Total Protein (6.0-8.0) g/dL Albumin (3.2-4.6) g/dL Globulin g/dL Albumin/Globulin Ratio Amylase (25-115) U/L Ethyl Alcohol (<0.03) % 12/04/18 12/04/18 12/04/18 Range/Units 07:55 07:55 07:55 WBC (4.5-12.0) X10-3/uL RBC (4.30-5.75) x10(6)uL Hgb (13.5-17.8) g/dL Hct (30.0-51.3) % MCV (80-96) fL MCH (27.7-33.6) pg MCHC (32.2-35.4) g/dL RDW (11.5-15.5) % Plt Count (125-369) X10(3)uL MPV (7.4-10.4) fL Neut % (Auto) (46-82) % Lymph % (Auto) (13-37) % [place] % (Auto) (4-12) % Eos % (Auto) (1.0-5.0) % Baso % (Auto) (0-2) % Neut # (Auto) (1.6-8.3) # Lymph # (Auto) (0.6-5.0) # [place] # (Auto) (0.0-1.3) # Eos # (Auto) (0.0-0.8) # Baso # (Auto) (0.0-0.2) # PT (8.7-11.1) INR (0.89-1.13) Sodium (135-145) mmol/L Potassium (3.5-5.3) mmol/L Chloride (100-110) mmol/L Carbon Dioxide (21-32) mmol/L BUN (7-18) mg/dL Creatinine (0.70-1.30) mg/dL Est Cr Clr Drug Dosing Estimated GFR (MDRD) (>60) BUN/Creatinine Ratio (9-20) Glucose (80-116) mg/dL POC Glucose (80-116) mg/dL Lactic Acid 2.0 (0.4-2.2) mmol/L Calcium (8.6-10.2) mg/dL Total Bilirubin 0.4 (0.1-1.3) mg/dL Direct Bilirubin 0.15 (0.10-0.20) mg/dL AST 44 H (5-25) IU/L ALT 49 H (12-36) U/L Alkaline Phosphatase 67 (56-112) IU/L Total Protein 8.2 H (6.0-8.0) g/dL Albumin 3.9 (3.2-4.6) g/dL Globulin g/dL Albumin/Globulin Ratio Amylase 462 H* (25-115) U/L Ethyl Alcohol < 0.03 (<0.03) % 12/04/18 12/05/18 12/05/18 Range/Units 19:35 06:12 06:35 WBC 10.4 (4.5-12.0) X10-3/uL RBC 4.14 L (4.30-5.75) x10(6)uL Hgb 12.7 L (13.5-17.8) g/dL Hct 37.3 (30.0-51.3) % MCV 90.1 (80-96) fL MCH 30.7 (27.7-33.6) pg MCHC 34.1 (32.2-35.4) g/dL RDW 12.3 (11.5-15.5) % Plt Count 152 (125-369) X10(3)uL MPV 7.4 (7.4-10.4) fL Neut % (Auto) 83.5 H (46-82) % Lymph % (Auto) 8.3 L (13-37) % [place] % (Auto) 6.5 (4-12) % Eos % (Auto) 1 (1.0-5.0) % Baso % (Auto) 0 (0-2) % Neut # (Auto) 8.7 H (1.6-8.3) # Lymph # (Auto) 0.9 (0.6-5.0) # [place] # (Auto) 0.7 (0.0-1.3) # Eos # (Auto) 0.1 (0.0-0.8) # Baso # (Auto) 0.0 (0.0-0.2) # PT (8.7-11.1) INR (0.89-1.13) Sodium (135-145) mmol/L Potassium (3.5-5.3) mmol/L Chloride (100-110) mmol/L Carbon Dioxide (21-32) mmol/L BUN (7-18) mg/dL Creatinine (0.70-1.30) mg/dL Est Cr Clr Drug Dosing Estimated GFR (MDRD) (>60) BUN/Creatinine Ratio (9-20) Glucose (80-116) mg/dL POC Glucose 149 H 174 H (80-116) mg/dL Lactic Acid (0.4-2.2) mmol/L Calcium (8.6-10.2) mg/dL Total Bilirubin (0.1-1.3) mg/dL Direct Bilirubin (0.10-0.20) mg/dL AST (5-25) IU/L ALT (12-36) U/L Alkaline Phosphatase (56-112) IU/L Total Protein (6.0-8.0) g/dL Albumin (3.2-4.6) g/dL Globulin g/dL Albumin/Globulin Ratio Amylase (25-115) U/L Ethyl Alcohol (<0.03) % 12/05/18 Range/Units 06:35 WBC (4.5-12.0) X10-3/uL RBC (4.30-5.75) x10(6)uL Hgb (13.5-17.8) g/dL Hct (30.0-51.3) % MCV (80-96) fL MCH (27.7-33.6) pg MCHC (32.2-35.4) g/dL RDW (11.5-15.5) % Plt Count (125-369) X10(3)uL MPV (7.4-10.4) fL Neut % (Auto) (46-82) % Lymph % (Auto) (13-37) % [place] % (Auto) (4-12) % Eos % (Auto) (1.0-5.0) % Baso % (Auto) (0-2) % Neut # (Auto) (1.6-8.3) # Lymph # (Auto) (0.6-5.0) # [place] # (Auto) (0.0-1.3) # Eos # (Auto) (0.0-0.8) # Baso # (Auto) (0.0-0.2) # PT (8.7-11.1) INR (0.89-1.13) Sodium 141 (135-145) mmol/L Potassium 4.3 (3.5-5.3) mmol/L Chloride 105 (100-110) mmol/L Carbon Dioxide 26 (21-32) mmol/L BUN 13 D (7-18) mg/dL Creatinine 1.1 (0.70-1.30) mg/dL Est Cr Clr Drug Dosing 60.57 Estimated GFR (MDRD) > 60 (>60) BUN/Creatinine Ratio 11.8 (9-20) Glucose 180 H (80-116) mg/dL POC Glucose (80-116) mg/dL Lactic Acid (0.4-2.2) mmol/L Calcium 8.8 (8.6-10.2) mg/dL Total Bilirubin 0.8 (0.1-1.3) mg/dL Direct Bilirubin (0.10-0.20) mg/dL AST 22 D (5-25) IU/L ALT 29 D (12-36) U/L Alkaline Phosphatase 57 (56-112) IU/L Total Protein 7.2 (6.0-8.0) g/dL Albumin 3.1 L (3.2-4.6) g/dL Globulin 4.1 g/dL Albumin/Globulin Ratio 0.8 Amylase 180 H (25-115) U/L Ethyl Alcohol (<0.03) % Med Orders - Current: Current Medications Amlodipine Besylate (Norvasc) 5 mg PO DAILY [facility] Atenolol/Chlorthalidone (Tenoretic 50) 1 tab PO DAILY [facility] Benazepril HCl (Lotensin) 20 mg PO DAILY [facility] Enoxaparin Sodium (Lovenox) 40 mg SUBCUT Q24H [facility] Last Admin: 12/04/18 18:29 Dose: 40 mg Sodium Chloride (Normal Saline) 1,000 mls @ 125 mls/hr IV ASDIRECTED [facility] Last Admin: 12/05/18 02:48 Dose: 125 mls/hr Sodium Chloride (Normal Saline) 1,000 mls @ 125 mls/hr IV ASDIRECTED [facility] Last Admin: 12/04/18 18:45 Dose: 125 mls/hr Ketotifen Fumarate (Ketotifen 0.025% Ophth Soln) 0 ml EYEBOTH DAILY PRN PRN Reason: Dry Eyes Morphine Sulfate (Morphine) 2 mg IVPUSH Q2H PRN PRN Reason: Pain (severe 7-10) Last Admin: 12/05/18 00:10 Dose: 2 mg Ondansetron HCl (Zofran) 4 mg IV Q4H PRN PRN Reason: Nausea/Vomiting Pantoprazole Sodium (Protonix) 40 mg PO ACBREAKFAST [facility] Sitagliptin Phosphate (Januvia) 100 mg PO DAILY [facility] Sodium Chloride (Saline Flush) 10 ml FLUSH ASDIRECTED PRN PRN Reason: IV Use Last Admin: 12/04/18 18:40 Dose: 10 ml Venlafaxine HCl (Effexor Xr) 150 mg PO DAILY [facility] Discontinued Medications Iopamidol (Isovue-370 (76%)) 150 ml IV ONETIME ONE Stop: 12/04/18 08:29 Last Admin: 12/04/18 08:39 Dose: 116 ml Morphine Sulfate (Morphine) 2 mg IVPUSH ONETIME ONE Stop: 12/04/18 08:16 Last Admin: 12/04/18 08:07 Dose: 2 mg Morphine Sulfate (Morphine) 2 mg IVPUSH ONETIME ONE Stop: 12/04/18 09:53 Last Admin: 12/04/18 09:54 Dose: Not Given Morphine Sulfate (Morphine) 2 mg IVPUSH ONETIME ONE Stop: 12/04/18 09:53 Last Admin: 12/04/18 10:00 Dose: 2 mg Pantoprazole Sodium (Protonix Iv) 40 mg IVPUSH ONETIME ONE Stop: 12/04/18 10:44 Last Admin: 12/04/18 12:18 Dose: 40 mg - Exam General: Alert, Oriented, Cooperative Lungs: Normal Respiratory Effort GI/Abdominal Exam: Normal Bowel Sounds, Soft, Distended, Tender (Diffuse and mild) - Problem List & Annotations (1) Acute gallstone pancreatitis SNOMED Code(s): 993617648 Code(s): K85.10 - BILIARY ACUTE PANCREATITIS WITHOUT NECROSIS OR INFECTION Status: Acute Current Visit: Yes (2) Palliative care status SNOMED Code(s): 115734699 Code(s): Z51.5 - ENCOUNTER FOR PALLIATIVE CARE Status: Acute Current Visit: Yes (3) Diabetes SNOMED Code(s): 43550504 Code(s): E11.9 - TYPE 2 DIABETES MELLITUS WITHOUT COMPLICATIONS Status: Acute Current Visit: No Qualifiers: Diabetes mellitus type: type 2 Diabetes mellitus terminal gauger insulin use: without terminal gauger use (4) Hypertension SNOMED Code(s): 69760279 Code(s): I10 - ESSENTIAL (PRIMARY) HYPERTENSION Status: Acute Current Visit: No (5) Hyperlipidemia SNOMED Code(s): 09795881 Code(s): E78.5 - HYPERLIPIDEMIA, UNSPECIFIED Status: Acute Current Visit : No (6) Chronic alcohol use SNOMED Code(s): 179895 Code(s): Z72.89 - OTHER PROBLEMS RELATED TO LIFESTYLE Status: Acute Current Visit: Yes (7) Pulmonary nodule SNOMED Code(s): 470816718 Code(s): R91.1 - SOLITARY PULMONARY NODULE Status: Acute Current Visit: Yes Annotation/Comment:: Right middle lobe (8) Cholelithiasis SNOMED Code(s): 473350518 Code(s): K80.20 - CALCULUS OF GALLBLADDER W/O CHOLECYSTITIS W/O OBSTRUCTION Status: Acute Current Visit: Yes (9) Fatty liver SNOMED Code(s): 520928104 Code(s): K76.0 - FATTY (CHANGE OF) LIVER, NOT ELSEWHERE CLASSIFIED Status: Acute Current Visit: Yes (10) Osteonecrosis SNOMED Code(s): 433791635 Code(s): M87.9 - OSTEONECROSIS, UNSPECIFIED Status: Acute Current Visit: Yes Annotation/Comment:: Femoral head bilaterally - Problem List Review Problem List Initiated/Reviewed/Updated: Yes - My Orders Last 24 Hours: My Active Orders 12/04/18 14:18 Patient Status [ADT] Routine 12/04/18 17:30 Accu Check [Blood Glucose Check, Bedside] [] 07,16 Enoxaparin [Lovenox] 40 mg SUBCUT Q24H 12/04/18 17:31 Ketotifen [Ketotifen 0.025% Ophth Soln] 0 ml EYEBOTH DAILY PRN 12/05/18 07:30 Pantoprazole [ProTONIX] 40 mg PO ACBREAKFAST 12/05/18 09:00 Atenolol/Chlorthalidone [Tenoretic 50] 1 tab PO DAILY Benazepril [Lotensin] 20 mg PO DAILY SitaGLIPtin [Januvia] 100 mg PO DAILY Venlafaxine [Effexor XR] 150 mg PO DAILY amLODIPine [Norvasc] 5 mg PO DAILY - Assessment Assessment:: Gallstone Pancreatitis Improving Amylase better this am, WBC normal, Calcium normal, Bilirubin normal - Plan Plan:: Will continue NPO with IV hydration encourage ambulation and IS recheck labs tomorrow and if continuing to improve will plan cholecystectomy soon
[2018-12-05] MEDS: Atenolol 50 MG Tab PO SCH (09:49)
[2018-12-05] MEDS: amLODIPine 5 MG Tab PO SCH (09:50)
[2018-12-05] MEDS: Chlorthalidone 25 MG Tab PO SCH (09:50)
[2018-12-05] MEDS: Venlafaxine 150 MG Cap.ER PO SCH (09:50)
[2018-12-05] MEDS: Pantoprazole 40 MG Tab.CR PO SCH (09:50)
[2018-12-05] MEDS: Enoxaparin 40 MG/0.4 ML Syringe SUBCUT SCH (17:49)
[2018-12-06] MEDS: Sodium Chloride 0.9% 1,000 ML IV SCH ×2 (02:32→10:35)
[2018-12-06] MEDS: Pantoprazole 40 MG Tab.CR PO SCH (07:25)
--- NOTE | 2018-12-06 07:51 | PCM.PN ---
- General Info Date of Service: 12/06/18 Admission Dx/Problem (Free Text): The patient states he is much better today has no fevers abdominal pain or nausea. He is passing gases not moved his bowels. - Patient Data Vitals - Most Recent: Last Vital Signs Temp 98.5 F 12/06/18 04:00 Pulse 78 12/06/18 04:00 Resp 16 12/06/18 04:00 BP 142/74 H 12/06/18 04:00 Pulse Ox 96 12/06/18 04:00 Weight - Most Recent: 220 lb 9.6 oz I&O - Last 24 Hours: Intake & Output 12/05/18 12/06/18 12/06/18 22:59 06:59 14:59 Intake Total 1238 1005 Output Total 1000 Balance 238 1005 Lab Results Last 24 Hours: Laboratory Results - last 24 hr 12/05/18 12/06/18 12/06/18 Range/Units 16:41 05:56 06:45 WBC (4.5-12.0) X10-3/uL RBC (4.30-5.75) x10(6)uL Hgb (13.5-17.8) g/dL Hct (30.0-51.3) % MCV (80-96) fL MCH (27.7-33.6) pg MCHC (32.2-35.4) g/dL RDW (11.5-15.5) % Plt Count (125-369) X10(3)uL MPV (7.4-10.4) fL Neut % (Auto) (46-82) % Lymph % (Auto) (13-37) % [place] % (Auto) (4-12) % Eos % (Auto) (1.0-5.0) % Baso % (Auto) (0-2) % Neut # (Auto) (1.6-8.3) # Lymph # (Auto) (0.6-5.0) # [place] # (Auto) (0.0-1.3) # Eos # (Auto) (0.0-0.8) # Baso # (Auto) (0.0-0.2) # Sodium 139 (135-145) mmol/L Potassium 4.0 (3.5-5.3) mmol/L Chloride 104 (100-110) mmol/L Carbon Dioxide 25 (21-32) mmol/L BUN 9 (7-18) mg/dL Creatinine 0.9 (0.70-1.30) mg/dL Est Cr Clr Drug Dosing 74.03 mL/min Estimated GFR (MDRD) > 60 (>60) BUN/Creatinine Ratio 10.0 (9-20) Glucose 139 H (80-116) mg/dL POC Glucose 128 H 148 H (80-116) mg/dL Calcium 8.5 L (8.6-10.2) mg/dL Total Bilirubin 0.7 (0.1-1.3) mg/dL AST 20 (5-25) IU/L ALT 24 D (12-36) U/L Alkaline Phosphatase 53 L (56-112) IU/L Total Protein 7.0 (6.0-8.0) g/dL Albumin 2.8 L (3.2-4.6) g/dL Globulin 4.2 g/dL Albumin/Globulin Ratio 0.7 Amylase 64 (25-115) U/L 12/06/18 Range/Units 06:45 WBC 9.8 (4.5-12.0) X10-3/uL RBC 3.88 L (4.30-5.75) x10(6)uL Hgb 11.9 L (13.5-17.8) g/dL Hct 35.1 (30.0-51.3) % MCV 90.6 (80-96) fL MCH 30.7 (27.7-33.6) pg MCHC 33.8 (32.2-35.4) g/dL RDW 12.1 (11.5-15.5) % Plt Count 135 (125-369) X10(3)uL MPV 7.6 (7.4-10.4) fL Neut % (Auto) 80.9 (46-82) % Lymph % (Auto) 9.9 L (13-37) % [place] % (Auto) 5.2 (4-12) % Eos % (Auto) 3 (1.0-5.0) % Baso % (Auto) 2 (0-2) % Neut # (Auto) 8.0 (1.6-8.3) # Lymph # (Auto) 1.0 (0.6-5.0) # [place] # (Auto) 0.5 (0.0-1.3) # Eos # (Auto) 0.2 (0.0-0.8) # Baso # (Auto) 0.1 (0.0-0.2) # Sodium (135-145) mmol/L Potassium (3.5-5.3) mmol/L Chloride (100-110) mmol/L Carbon Dioxide (21-32) mmol/L BUN (7-18) mg/dL Creatinine (0.70-1.30) mg/dL Est Cr Clr Drug Dosing mL/min Estimated GFR (MDRD) (>60) BUN/Creatinine Ratio (9-20) Glucose (80-116) mg/dL POC Glucose (80-116) mg/dL Calcium (8.6-10.2) mg/dL Total Bilirubin (0.1-1.3) mg/dL AST (5-25) IU/L ALT (12-36) U/L Alkaline Phosphatase (56-112) IU/L Total Protein (6.0-8.0) g/dL Albumin (3.2-4.6) g/dL Globulin g/dL Albumin/Globulin Ratio Amylase (25-115) U/L Med Orders - Current: Current Medications Amlodipine Besylate (Norvasc) 5 mg PO DAILY [facility] Last Admin: 12/05/18 09:50 Dose: 5 mg Atenolol (Tenormin) 50 mg PO DAILY [facility] Last Admin: 12/05/18 09:49 Dose: 50 mg Benazepril HCl (Lotensin) 20 mg PO DAILY [facility] Last Admin: 12/05/18 09:50 Dose: 20 mg Chlorthalidone (Chlorthalidone) 12.5 mg PO DAILY [facility] Last Admin: 12/05/18 09:50 Dose: 12.5 mg Enoxaparin Sodium (Lovenox) 40 mg SUBCUT Q24H [facility] Last Admin: 12/05/18 17:49 Dose: 40 mg Sodium Chloride (Normal Saline) 1,000 mls @ 125 mls/hr IV ASDIRECTED [facility] Last Admin: 12/06/18 02:32 Dose: 125 mls/hr Ketotifen Fumarate (Ketotifen 0.025% Ophth Soln) 0 ml EYEBOTH DAILY PRN PRN Reason: Dry Eyes Morphine Sulfate (Morphine) 2 mg IVPUSH Q2H PRN PRN Reason: Pain (severe 7-10) Last Admin: 12/05/18 19:15 Dose: 2 mg Ondansetron HCl (Zofran) 4 mg IV Q4H PRN PRN Reason: Nausea/Vomiting Pantoprazole Sodium (Protonix) 40 mg PO ACBREAKFAST [facility] Last Admin: 12/06/18 07:25 Dose: 40 mg Sitagliptin Phosphate (Januvia) 100 mg PO DAILY [facility] Last Admin: 12/05/18 09:50 Dose: 100 mg Sodium Chloride (Saline Flush) 10 ml FLUSH ASDIRECTED PRN PRN Reason: IV Use Last Admin: 12/04/18 18:40 Dose: 10 ml Venlafaxine HCl (Effexor Xr) 150 mg PO DAILY [facility] Last Admin: 12/05/18 09:50 Dose: 150 mg Discontinued Medications Sodium Chloride (Normal Saline) 1,000 mls @ 125 mls/hr IV ASDIRECTED [facility] Last Admin: 12/04/18 18:45 Dose: 125 mls/hr Iopamidol (Isovue-370 (76%)) 150 ml IV ONETIME ONE Stop: 12/04/18 08:29 Last Admin: 12/04/18 08:39 Dose: 116 ml Morphine Sulfate (Morphine) 2 mg IVPUSH ONETIME ONE Stop: 12/04/18 08:16 Last Admin: 12/04/18 08:07 Dose: 2 mg Morphine Sulfate (Morphine) 2 mg IVPUSH ONETIME ONE Stop: 12/04/18 09:53 Last Admin: 12/04/18 09:54 Dose: Not Given Morphine Sulfate (Morphine) 2 mg IVPUSH ONETIME ONE Stop: 12/04/18 09:53 Last Admin: 12/04/18 10:00 Dose: 2 mg Pantoprazole Sodium (Protonix Iv) 40 mg IVPUSH ONETIME ONE Stop: 12/04/18 10:44 Last Admin: 12/04/18 12:18 Dose: 40 mg - Exam General: Alert, Oriented GI/Abdominal Exam: Normal Bowel Sounds, Soft, Non-Tender, No Organomegaly, No Distention, No Abnormal Bruit, No Mass - Problem List & Annotations (1) Acute gallstone pancreatitis SNOMED Code(s): 441567239 Code(s): K85.10 - BILIARY ACUTE PANCREATITIS WITHOUT NECROSIS OR INFECTION Status: Acute Current Visit: Yes (2) Palliative care status SNOMED Code(s): 849523573 Code(s): Z51.5 - ENCOUNTER FOR PALLIATIVE CARE Status: Acute Current Visit: Yes (3) Diabetes SNOMED Code(s): 49709557 Code(s): E11.9 - TYPE 2 DIABETES MELLITUS WITHOUT COMPLICATIONS Status: Acute Current Visit: No Qualifiers: Diabetes mellitus type: type 2 Diabetes mellitus alf insulin use: without terminal press operator use (4) Hypertension SNOMED Code(s): 21043818 Code(s): I10 - ESSENTIAL (PRIMARY) HYPERTENSION Status: Acute Current Visit: No (5) Hyperlipidemia SNOMED Code(s): 90221554 Code(s): E78.5 - HYPERLIPIDEMIA, UNSPECIFIED Status: Acute Current Visit : No (6) Chronic alcohol use SNOMED Code(s): 318643 Code(s): Z72.89 - OTHER PROBLEMS RELATED TO LIFESTYLE Status: Acute Current Visit: Yes (7) Pulmonary nodule SNOMED Code(s): 899568233 Code(s): R91.1 - SOLITARY PULMONARY NODULE Status: Acute Current Visit: Yes Annotation/Comment:: Right middle lobe (8) Cholelithiasis SNOMED Code(s): 390207479 Code(s): K80.20 - CALCULUS OF GALLBLADDER W/O CHOLECYSTITIS W/O OBSTRUCTION Status: Acute Current Visit: Yes (9) Fatty liver SNOMED Code(s): 373660688 Code(s): K76.0 - FATTY (CHANGE OF) LIVER, NOT ELSEWHERE CLASSIFIED Status: Acute Current Visit: Yes (10) Osteonecrosis SNOMED Code(s): 274749758 Code(s): M87.9 - OSTEONECROSIS, UNSPECIFIED Status: Acute Current Visit: Yes Annotation/Comment:: Femoral head bilaterally - Problem List Review Problem List Initiated/Reviewed/Updated: No - My Orders Last 24 Hours: My Active Orders 12/05/18 07:30 Pantoprazole [ProTONIX] 40 mg PO ACBREAKFAST 12/05/18 09:00 Atenolol [Tenormin] 50 mg PO DAILY Benazepril [Lotensin] 20 mg PO DAILY Chlorthalidone 12.5 mg PO DAILY SitaGLIPtin [Januvia] 100 mg PO DAILY Venlafaxine [Effexor XR] 150 mg PO DAILY amLODIPine [Norvasc] 5 mg PO DAILY - Assessment Assessment:: Gallstone Pancreatitis Improving Amylase better this am, WBC normal, Calcium normal, Bilirubin normal Dr. Rodríguez to do surgery today per Dr. Rodríguez - Plan Plan:: Will continue NPO with IV hydration encourage ambulation and IS recheck labs tomorrow and if continuing to improve will plan cholecystectomy soon
--- NOTE | 2018-12-06 07:54 | PCM.PN ---
- General Info Date of Service: 12/06/18 Admission Dx/Problem (Free Text): Gallstone pancreatitis - Amylase now normal and pain minimal Functional Status: Reports: Pain Controlled (Now has minimal pain) - Review of Systems General: Denies: Fever Pulmonary: Reports: No Symptoms Gastrointestinal: Reports: Flatus. Denies: Nausea, Vomiting Musculoskeletal: Reports: Back Pain (noting that bed is not comfortable for him) - Patient Data Vitals - Most Recent: Last Vital Signs Temp 98.5 F 12/06/18 04:00 Pulse 78 12/06/18 04:00 Resp 16 12/06/18 04:00 BP 142/74 H 12/06/18 04:00 Pulse Ox 96 12/06/18 04:00 Weight - Most Recent: 220 lb 9.6 oz I&O - Last 24 Hours: Intake & Output 12/05/18 12/06/18 12/06/18 22:59 06:59 14:59 Intake Total 1238 1005 Output Total 1000 Balance 238 1005 Lab Results Last 24 Hours: Laboratory Results - last 24 hr 12/05/18 12/06/18 12/06/18 Range/Units 16:41 05:56 06:45 WBC (4.5-12.0) X10-3/uL RBC (4.30-5.75) x10(6)uL Hgb (13.5-17.8) g/dL Hct (30.0-51.3) % MCV (80-96) fL MCH (27.7-33.6) pg MCHC (32.2-35.4) g/dL RDW (11.5-15.5) % Plt Count (125-369) X10(3)uL MPV (7.4-10.4) fL Neut % (Auto) (46-82) % Lymph % (Auto) (13-37) % [place] % (Auto) (4-12) % Eos % (Auto) (1.0-5.0) % Baso % (Auto) (0-2) % Neut # (Auto) (1.6-8.3) # Lymph # (Auto) (0.6-5.0) # [place] # (Auto) (0.0-1.3) # Eos # (Auto) (0.0-0.8) # Baso # (Auto) (0.0-0.2) # Sodium 139 (135-145) mmol/L Potassium 4.0 (3.5-5.3) mmol/L Chloride 104 (100-110) mmol/L Carbon Dioxide 25 (21-32) mmol/L BUN 9 (7-18) mg/dL Creatinine 0.9 (0.70-1.30) mg/dL Est Cr Clr Drug Dosing 74.03 mL/min Estimated GFR (MDRD) > 60 (>60) BUN/Creatinine Ratio 10.0 (9-20) Glucose 139 H (80-116) mg/dL POC Glucose 128 H 148 H (80-116) mg/dL Calcium 8.5 L (8.6-10.2) mg/dL Total Bilirubin 0.7 (0.1-1.3) mg/dL AST 20 (5-25) IU/L ALT 24 D (12-36) U/L Alkaline Phosphatase 53 L (56-112) IU/L Total Protein 7.0 (6.0-8.0) g/dL Albumin 2.8 L (3.2-4.6) g/dL Globulin 4.2 g/dL Albumin/Globulin Ratio 0.7 Amylase 64 (25-115) U/L 05/15/19 Range/Units 06:45 WBC 9.8 (4.5-12.0) X10-3/uL RBC 3.88 L (4.30-5.75) x10(6)uL Hgb 11.9 L (13.5-17.8) g/dL Hct 35.1 (30.0-51.3) % MCV 90.6 (80-96) fL MCH 30.7 (27.7-33.6) pg MCHC 33.8 (32.2-35.4) g/dL RDW 12.1 (11.5-15.5) % Plt Count 135 (125-369) X10(3)uL MPV 7.6 (7.4-10.4) fL Neut % (Auto) 80.9 (46-82) % Lymph % (Auto) 9.9 L (13-37) % [place] % (Auto) 5.2 (4-12) % Eos % (Auto) 3 (1.0-5.0) % Baso % (Auto) 2 (0-2) % Neut # (Auto) 8.0 (1.6-8.3) # Lymph # (Auto) 1.0 (0.6-5.0) # [place] # (Auto) 0.5 (0.0-1.3) # Eos # (Auto) 0.2 (0.0-0.8) # Baso # (Auto) 0.1 (0.0-0.2) # Sodium (135-145) mmol/L Potassium (3.5-5.3) mmol/L Chloride (100-110) mmol/L Carbon Dioxide (21-32) mmol/L BUN (7-18) mg/dL Creatinine (0.70-1.30) mg/dL Est Cr Clr Drug Dosing mL/min Estimated GFR (MDRD) (>60) BUN/Creatinine Ratio (9-20) Glucose (80-116) mg/dL POC Glucose (80-116) mg/dL Calcium (8.6-10.2) mg/dL Total Bilirubin (0.1-1.3) mg/dL AST (5-25) IU/L ALT (12-36) U/L Alkaline Phosphatase (56-112) IU/L Total Protein (6.0-8.0) g/dL Albumin (3.2-4.6) g/dL Globulin g/dL Albumin/Globulin Ratio Amylase (25-115) U/L Med Orders - Current: Current Medications Amlodipine Besylate (Norvasc) 5 mg PO DAILY [facility] Last Admin: 12/05/18 09:50 Dose: 5 mg Atenolol (Tenormin) 50 mg PO DAILY [facility] Last Admin: 12/05/18 09:49 Dose: 50 mg Benazepril HCl (Lotensin) 20 mg PO DAILY [facility] Last Admin: 12/05/18 09:50 Dose: 20 mg Chlorthalidone (Chlorthalidone) 12.5 mg PO DAILY [facility] Last Admin: 12/05/18 09:50 Dose: 12.5 mg Enoxaparin Sodium (Lovenox) 40 mg SUBCUT Q24H [facility] Last Admin: 12/05/18 17:49 Dose: 40 mg Sodium Chloride (Normal Saline) 1,000 mls @ 125 mls/hr IV ASDIRECTED [facility] Last Admin: 12/06/18 02:32 Dose: 125 mls/hr Ketotifen Fumarate (Ketotifen 0.025% Ophth Soln) 0 ml EYEBOTH DAILY PRN PRN Reason: Dry Eyes Morphine Sulfate (Morphine) 2 mg IVPUSH Q2H PRN PRN Reason: Pain (severe 7-10) Last Admin: 12/05/18 19:15 Dose: 2 mg Ondansetron HCl (Zofran) 4 mg IV Q4H PRN PRN Reason: Nausea/Vomiting Pantoprazole Sodium (Protonix) 40 mg PO ACBREAKFAST [facility] Last Admin: 12/06/18 07:25 Dose: 40 mg Sitagliptin Phosphate (Januvia) 100 mg PO DAILY [facility] Last Admin: 12/05/18 09:50 Dose: 100 mg Sodium Chloride (Saline Flush) 10 ml FLUSH ASDIRECTED PRN PRN Reason: IV Use Last Admin: 12/04/18 18:40 Dose: 10 ml Venlafaxine HCl (Effexor Xr) 150 mg PO DAILY [facility] Last Admin: 12/05/18 09:50 Dose: 150 mg Discontinued Medications Sodium Chloride (Normal Saline) 1,000 mls @ 125 mls/hr IV ASDIRECTED [facility] Last Admin: 12/04/18 18:45 Dose: 125 mls/hr Iopamidol (Isovue-370 (76%)) 150 ml IV ONETIME ONE Stop: 12/04/18 08:29 Last Admin: 12/04/18 08:39 Dose: 116 ml Morphine Sulfate (Morphine) 2 mg IVPUSH ONETIME ONE Stop: 12/04/18 08:16 Last Admin: 12/04/18 08:07 Dose: 2 mg Morphine Sulfate (Morphine) 2 mg IVPUSH ONETIME ONE Stop: 12/04/18 09:53 Last Admin: 12/04/18 09:54 Dose: Not Given Morphine Sulfate (Morphine) 2 mg IVPUSH ONETIME ONE Stop: 12/04/18 09:53 Last Admin: 12/04/18 10:00 Dose: 2 mg Pantoprazole Sodium (Protonix Iv) 40 mg IVPUSH ONETIME ONE Stop: 12/04/18 10:44 Last Admin: 12/04/18 12:18 Dose: 40 mg - Exam General: Alert, Oriented Lungs: Normal Respiratory Effort GI/Abdominal Exam: Soft, Non-Tender - Problem List Review Problem List Initiated/Reviewed/Updated: Yes - Assessment Assessment:: Gallstone Pancreatitis - resolving Amylase now normal - Plan Plan:: Cholecystectomy this afternoon I discussed the proposed cholecystectomy with the patient. Expectations and risks reviewed. Possible need to perform laparotomy discussed. He agrees to proceed.
[2018-12-06] MEDS: Chlorthalidone 25 MG Tab PO SCH (09:25)
[2018-12-06] MEDS: Atenolol 50 MG Tab PO SCH (09:26)
[2018-12-06] MEDS: Venlafaxine 150 MG Cap.ER PO SCH (09:27)
[2018-12-06] MEDS: amLODIPine 5 MG Tab PO SCH (09:28)
[2018-12-06] MEDS ORDERED: ceFAZolin 2 GM in Premix Bag 1 BAG IV ONE (12:45)
[2018-12-06] MEDS ORDERED: Bupivacaine 0.5%/EPINEPHrine 1:200,000 50 ML MDV ONE (14:02)
--- NOTE | 2018-12-06 15:37 | PCM.OPNOTE ---
- General Post-Op/Procedure Note Date of Surgery/Procedure: 12/06/18 Operative Procedure(s): Laparoscopic Cholecystectomy. Repair of Umbilical Hernia Findings: Distended gallbladder with inflammatory fluid around it Moderate sized umbilical hernia Pre Op Diagnosis: Cholelithiasis with Gallstone Pancreatitis Post-Op Diagnosis: Same Anesthesia Technique: General ET Tube Primary Surgeon: Davonte Rodríguez Pathology: gallbladder Output, Urine Amount: 0 EBL in mLs: 50 Complications: None Condition: Good Free Text/Narrative:: Intake & Output 12/06/18 12/06/18 12/06/18 06:59 14:59 22:59 Intake Total 1005 807 Output Total 400 Balance 1005 407
[2018-12-06] MEDS ORDERED: Ondansetron 4 MG/2 ML SDV IVPUSH PRN (15:38)
[2018-12-06] MEDS ORDERED: Morphine 2 MG/ML Syringe IVPUSH PRN (15:38)
[2018-12-06] MEDS ORDERED: Acetaminophen/HYDROcodone 325-5 MG Tab PO PRN ×2 (15:38)
[2018-12-06] MEDS ORDERED: Lactated Ringers 1,000 ML IV SCH (15:45)
[2018-12-06] MEDS ORDERED: Fluticasone Propionate Nasal Spray 16 GM Bottle NASBOTH PRN (16:00)
[2018-12-06] MEDS ORDERED: metFORMIN 500 MG Tab PO SCH (18:00)
--- NOTE | 2018-12-06 18:43 | PCM.SURGPN ---
- General Info Date of Service: 12/06/18 Date of Surgery/Procedure: 12/06/18 POD#: 0 Post-Op Diagnosis: Gallstone Pancreatitis - Review of Systems Systems Review Comment:: Patient feeling well post op Tolerating diet Denies pain - Patient Data Vitals - Most Recent: Last Vital Signs Temp 97.9 F 12/06/18 16:25 Pulse 65 12/06/18 16:25 Resp 18 12/06/18 16:25 BP 127/65 12/06/18 16:25 Pulse Ox 94 L 12/06/18 17:30 Weight - Most Recent: 220 lb 9.6 oz I&O - Last 24 Hours: Intake & Output 12/06/18 12/06/18 12/06/18 06:59 14:59 22:59 Intake Total 1005 807 Output Total 400 0 Balance 1005 407 0 Lab Results Last 24 Hrs: Laboratory Results - last 24 hr 12/06/18 12/06/18 12/06/18 Range/Units 05:56 06:45 06:45 WBC 9.8 (4.5-12.0) X10-3/uL RBC 3.88 L (4.30-5.75) x10(6)uL Hgb 11.9 L (13.5-17.8) g/dL Hct 35.1 (30.0-51.3) % MCV 90.6 (80-96) fL MCH 30.7 (27.7-33.6) pg MCHC 33.8 (32.2-35.4) g/dL RDW 12.1 (11.5-15.5) % Plt Count 135 (125-369) X10(3)uL MPV 7.6 (7.4-10.4) fL Neut % (Auto) 80.9 (46-82) % Lymph % (Auto) 9.9 L (13-37) % Haines % (Auto) 5.2 (4-12) % Eos % (Auto) 3 (1.0-5.0) % Baso % (Auto) 2 (0-2) % Neut # (Auto) 8.0 (1.6-8.3) # Lymph # (Auto) 1.0 (0.6-5.0) # Haines # (Auto) 0.5 (0.0-1.3) # Eos # (Auto) 0.2 (0.0-0.8) # Baso # (Auto) 0.1 (0.0-0.2) # Sodium 139 (135-145) mmol/L Potassium 4.0 (3.5-5.3) mmol/L Chloride 104 (100-110) mmol/L Carbon Dioxide 25 (21-32) mmol/L BUN 9 (7-18) mg/dL Creatinine 0.9 (0.70-1.30) mg/dL Est Cr Clr Drug Dosing 74.03 mL/min Estimated GFR (MDRD) > 60 (>60) BUN/Creatinine Ratio 10.0 (9-20) Glucose 139 H (80-116) mg/dL POC Glucose 148 H (80-116) mg/dL Calcium 8.5 L (8.6-10.2) mg/dL Total Bilirubin 0.7 (0.1-1.3) mg/dL AST 20 (5-25) IU/L ALT 24 D (12-36) U/L Alkaline Phosphatase 53 L (56-112) IU/L Total Protein 7.0 (6.0-8.0) g/dL Albumin 2.8 L (3.2-4.6) g/dL Globulin 4.2 g/dL Albumin/Globulin Ratio 0.7 Amylase 64 (25-115) U/L Med Orders - Current: Current Medications Hydrocodone Bitart/Acetaminophen ([place] 325-5 Mg) 1 tab PO Q4H PRN PRN Reason: Pain (mild 1-3) Hydrocodone Bitart/Acetaminophen ([place] 325-5 Mg) 2 tab PO Q4H PRN PRN Reason: Pain (moderate 4-6) Amlodipine Besylate (Norvasc) 5 mg PO DAILY [facility] Last Admin: 12/06/18 09:28 Dose: 5 mg Atenolol (Tenormin) 50 mg PO DAILY [facility] Last Admin: 12/06/18 09:26 Dose: 50 mg Benazepril HCl (Lotensin) 20 mg PO DAILY [facility] Last Admin: 12/06/18 09:28 Dose: 20 mg Chlorthalidone (Chlorthalidone) 12.5 mg PO DAILY [facility] Last Admin: 12/06/18 09:25 Dose: 12.5 mg Enoxaparin Sodium (Lovenox) 40 mg SUBCUT Q24H [facility] Last Admin: 12/05/18 17:49 Dose: 40 mg Fluticasone Propionate (Flonase) 0 gm NASBOTH DAILY PRN PRN Reason: RHINITIS Sodium Chloride (Normal Saline) 1,000 mls @ 125 mls/hr IV ASDIRECTED [facility] Last Admin: 12/06/18 10:35 Dose: 125 mls/hr Lactated Ringer's (Ringers, Lactated) 1,000 mls @ 125 mls/hr IV ASDIRECTED [facility] Lactated Ringer's (Ringers, Lactated) 1,000 mls @ 125 mls/hr IV ASDIRECTED [facility] Ketotifen Fumarate (Ketotifen 0.025% Ophth Soln) 0 ml EYEBOTH DAILY PRN PRN Reason: Dry Eyes Metformin HCl (Glucophage) 500 mg PO BIDM [facility] Last Admin: 12/06/18 18:31 Dose: 500 mg Morphine Sulfate (Morphine) 2 mg IVPUSH Q1H PRN PRN Reason: Pain (severe 7-10) Ondansetron HCl (Zofran) 4 mg IVPUSH Q6H PRN PRN Reason: Nausea/Vomiting Pantoprazole Sodium (Protonix) 40 mg PO ACBREAKFAST [facility] Last Admin: 12/06/18 07:25 Dose: 40 mg Rosuvastatin Calcium (Crestor) 20 mg PO DAILY [facility] Sitagliptin Phosphate (Januvia) 100 mg PO DAILY [facility] Last Admin: 12/06/18 09:28 Dose: 100 mg Sodium Chloride (Saline Flush) 10 ml FLUSH ASDIRECTED PRN PRN Reason: IV Use Last Admin: 12/04/18 18:40 Dose: 10 ml Venlafaxine HCl (Effexor Xr) 150 mg PO DAILY [facility] Last Admin: 12/06/18 09:27 Dose: 150 mg Discontinued Medications Bupivacaine HCl/Epinephrine Bitart (Marcaine 0.5%/Epinephrine 1:200,000) 10 ml .XX .STK-MED ONE Stop: 12/06/18 14:03 Last Admin: 12/06/18 14:02 Dose: 10 ml Sodium Chloride (Normal Saline) 1,000 mls @ 125 mls/hr IV ASDIRECTED [facility] Last Admin: 12/04/18 18:45 Dose: 125 mls/hr Cefazolin Sodium/Dextrose 2 gm (/ Premix) 50 mls @ 100 mls/hr IV ONETIME ONE Stop: 12/06/18 13:14 Last Admin: 12/06/18 12:50 Dose: 100 mls/hr Iopamidol (Isovue-370 (76%)) 150 ml IV ONETIME ONE Stop: 12/04/18 08:29 Last Admin: 12/04/18 08:39 Dose: 116 ml Morphine Sulfate (Morphine) 2 mg IVPUSH ONETIME ONE Stop: 12/04/18 08:16 Last Admin: 12/04/18 08:07 Dose: 2 mg Morphine Sulfate (Morphine) 2 mg IVPUSH ONETIME ONE Stop: 12/04/18 09:53 Last Admin: 12/04/18 09:54 Dose: Not Given Morphine Sulfate (Morphine) 2 mg IVPUSH ONETIME ONE Stop: 12/04/18 09:53 Last Admin: 12/04/18 10:00 Dose: 2 mg Morphine Sulfate (Morphine) 2 mg IVPUSH Q2H PRN PRN Reason: Pain (severe 7-10) Last Admin: 12/05/18 19:15 Dose: 2 mg Ondansetron HCl (Zofran) 4 mg IV Q4H PRN PRN Reason: Nausea/Vomiting Pantoprazole Sodium (Protonix Iv) 40 mg IVPUSH ONETIME ONE Stop: 12/04/18 10:44 Last Admin: 12/04/18 12:18 Dose: 40 mg - Problem List Review Problem List Initiated/Reviewed/Updated: Yes - My Orders Last 24 Hours: Active Orders 24 hr Category Date Time Status Patient Status [ADT] Routine ADT 12/06/18 15:38 Active Ambulate [RC] ASDIRECTED Care 12/06/18 15:38 Active Antiembolic Devices [RC] .Routine Care 12/06/18 15:40 Active Blood Glucose Check, Bedside [RC] ONETIME Care 12/07/18 12:45 Active EKG Documentation Completion [RC] ASDIRECTED Care 12/06/18 10:06 Active Intake and Output [RC] QSHIFT Care 12/06/18 15:39 Active Oxygen Therapy [RC] PRN Care 12/06/18 15:38 Active Patient to Empty Bladder [RC] ASDIRECTED Care 12/07/18 12:45 Active RT Incentive Spirometry [RC] Q1HWA Care 12/06/18 15:38 Active VTE/DVT Education [RC] Click to Edit Care 12/06/18 15:40 Active Verify Patient Consent Obtain [RC] ASDIRECTED Care 12/07/18 12:45 Active Vital Signs [RC] PER UNIT ROUTINE Care 12/06/18 15:38 Active Full Liquid Diet [DIET] Diet 12/06/18 Dinner Active AMYLASE [CHEM] Routine Lab 12/07/18 05:00 Ordered HEPATIC FUNCTION PANEL,HFP [CHEM] AM Lab 12/07/18 05:11 Ordered Acetaminophen/HYDROcodone [[place] 325-5 MG] Med 12/06/18 15:38 Active 1 tab PO Q4H PRN Acetaminophen/HYDROcodone [[place] 325-5 MG] Med 12/06/18 15:38 Active 2 tab PO Q4H PRN Fluticasone Propionate [Flonase] Med 12/06/18 16:00 Active 0 gm NASBOTH DAILY PRN Lactated Ringers [Ringers, Lactated] 1,000 ml Med 12/06/18 15:45 Active IV ASDIRECTED Lactated Ringers [Ringers, Lactated] 1,000 ml Med 12/07/18 12:45 Active IV ASDIRECTED Morphine Med 12/06/18 15:38 Active 2 mg IVPUSH Q1H PRN Ondansetron [Zofran] Med 12/06/18 15:38 Active 4 mg IVPUSH Q6H PRN Rosuvastatin [Crestor] Med 12/07/18 09:00 Active 20 mg PO DAILY metFORMIN [Glucophage] Med 12/06/18 18:00 Active 500 mg PO BIDM DVT/VTE Prophylaxis Reflex [OM.PC] Per Unit Routine Oth 12/06/18 15:40 Ordered Sequential Compression Device [OM.PC] Routine Oth 12/07/18 12:45 Ordered EKG 12 Lead [EK] Routine Ther 12/06/18 09:25 Ordered Medication Orders Hydrocodone Bitart/Acetaminophen ([place] 325-5 Mg) 1 tab PO Q4H PRN PRN Reason: Pain (mild 1-3) Hydrocodone Bitart/Acetaminophen ([place] 325-5 Mg) 2 tab PO Q4H PRN PRN Reason: Pain (moderate 4-6) Amlodipine Besylate (Norvasc) 5 mg PO DAILY [facility] Last Admin: 12/06/18 09:28 Dose: 5 mg Admin: 12/05/18 09:50 Dose: 5 mg Atenolol (Tenormin) 50 mg PO DAILY [facility] Last Admin: 12/06/18 09:26 Dose: 50 mg Admin: 12/05/18 09:49 Dose: 50 mg Benazepril HCl (Lotensin) 20 mg PO DAILY [facility] Last Admin: 12/06/18 09:28 Dose: 20 mg Admin: 12/05/18 09:50 Dose: 20 mg Chlorthalidone (Chlorthalidone) 12.5 mg PO DAILY [facility] Last Admin: 12/06/18 09:25 Dose: 12.5 mg Admin: 12/05/18 09:50 Dose: 12.5 mg Enoxaparin Sodium (Lovenox) 40 mg SUBCUT Q24H [facility] Last Admin: 12/05/18 17:49 Dose: 40 mg Admin: 12/04/18 18:29 Dose: 40 mg Fluticasone Propionate (Flonase) 0 gm NASBOTH DAILY PRN PRN Reason: RHINITIS Sodium Chloride (Normal Saline) 1,000 mls @ 125 mls/hr IV ASDIRECTED [facility] Last Admin: 12/06/18 10:35 Dose: 125 mls/hr Infusion: 12/06/18 10:32 Dose: 125 mls/hr Admin: 12/06/18 02:32 Dose: 125 mls/hr Infusion: 12/06/18 02:32 Dose: 125 mls/hr Admin: 12/05/18 18:55 Dose: 125 mls/hr Infusion: 12/05/18 18:49 Dose: 125 mls/hr Admin: 12/05/18 10:49 Dose: 125 mls/hr Infusion: 12/05/18 10:48 Dose: 125 mls/hr Admin: 12/05/18 02:48 Dose: 125 mls/hr Infusion: 12/04/18 18:34 Dose: 125 mls/hr Admin: 12/04/18 10:34 Dose: 125 mls/hr Lactated Ringer's (Ringers, Lactated) 1,000 mls @ 125 mls/hr IV ASDIRECTED [facility] Lactated Ringer's (Ringers, Lactated) 1,000 mls @ 125 mls/hr IV ASDIRECTED [facility] Ketotifen Fumarate (Ketotifen 0.025% Ophth Soln) 0 ml EYEBOTH DAILY PRN PRN Reason: Dry Eyes Metformin HCl (Glucophage) 500 mg PO BIDM [facility] Last Admin: 12/06/18 18:31 Dose: 500 mg Morphine Sulfate (Morphine) 2 mg IVPUSH Q1H PRN PRN Reason: Pain (severe 7-10) Ondansetron HCl (Zofran) 4 mg IVPUSH Q6H PRN PRN Reason: Nausea/Vomiting Pantoprazole Sodium (Protonix) 40 mg PO ACBREAKFAST [facility] Last Admin: 12/06/18 07:25 Dose: 40 mg Admin: 12/05/18 09:50 Dose: 40 mg Rosuvastatin Calcium (Crestor) 20 mg PO DAILY [facility] Sitagliptin Phosphate (Januvia) 100 mg PO DAILY [facility] Last Admin: 12/06/18 09:28 Dose: 100 mg Admin: 12/05/18 09:50 Dose: 100 mg Sodium Chloride (Saline Flush) 10 ml FLUSH ASDIRECTED PRN PRN Reason: IV Use Last Admin: 12/04/18 18:40 Dose: 10 ml Admin: 12/04/18 12:19 Dose: 10 ml Admin: 12/04/18 10:01 Dose: 10 ml Admin: 12/04/18 08:07 Dose: 10 ml Admin: 12/04/18 07:50 Dose: 10 ml Venlafaxine HCl (Effexor Xr) 150 mg PO DAILY [facility] Last Admin: 12/06/18 09:27 Dose: 150 mg Admin: 12/05/18 09:50 Dose: 150 mg - Assessment Assessment (Free Text/Narrative):: Doing well post cholecystectomy - Plan Plan (Free Text/Narrative):: Discharge Patient carefully advised to minimize alcohol intake for the next several weeks Low fat diet Patient to have Amylase and Hepatic Profile drawn in Hospital on the morning of 12/08/2018 and then will see me in office later that day.
[2018-12-06 19:24] VITALS: BP 112/65
[2018-12-06] MEDS ORDERED: Glycopyrrolate 0.2 MG/ML 5 ML MDV IV ONE (19:49)
[2018-12-06] MEDS ORDERED: Ondansetron 4 MG/2 ML SDV IVPUSH ONE (19:49)
[2018-12-06] MEDS ORDERED: Rocuronium 50 MG/5 ML Vial IV ONE (19:49)
[2018-12-06] MEDS ORDERED: Succinylcholine 200 MG/10 ML MDV IV ONE (19:49)
[2018-12-06] MEDS ORDERED: Midazolam 1 MG/ML 2 ML SDV IV ONE (19:49)
[2018-12-06] MEDS ORDERED: fentaNYL 100 MCG/2 ML SDV IV ONE (19:49)
[2018-12-06] MEDS ORDERED: Lactated Ringers 1,000 ML IV ONE (19:49)
[2018-12-06] MEDS ORDERED: Propofol 200 MG/20 ML SDV IV ONE (19:49)
[2018-12-06] MEDS ORDERED: Acetaminophen/HYDROcodone 325-5 MG Tab PO ONE (19:49)
[2018-12-06] MEDS ORDERED: Neostigmine Methylsulfate 10 MG/10 ML MDV IVPUSH ONE (19:49)
[2018-12-06] MEDS ORDERED: Dexamethasone 4 MG/ML 5 ML MDV IVPUSH ONE (19:49)
[2018-12-06] MEDS ORDERED: Ketorolac 30 MG/ML SDV IVPUSH ONE (19:49)
--- NOTE | 2018-12-06 22:37 | OR ---
DATE OF OPERATION: 12/06/2018 SURGEON: Davonte Rodríguez MD PREOPERATIVE DIAGNOSES: Gallstone pancreatitis with cholelithiasis. POSTOPERATIVE DIAGNOSES: 1. Gallstone pancreatitis with cholelithiasis. 2. Umbilical hernia. OPERATION PERFORMED: 1. Laparoscopic cholecystectomy. 2. Umbilical hernia repair. INDICATIONS FOR SURGERY: This 63-year-old male was admitted 2 days ago with abdominal pain and elevated amylase. Ultrasound has documented cholelithiasis, which is felt to be the source of his symptoms. His liver function tests including bilirubin have been normal, and his amylase has returned to normal. He comes now for cholecystectomy. FINDINGS: The patient has a moderate amount of free peritoneal inflammatory fluid in the area of the liver. The gallbladder is distended, but does not otherwise appear acutely inflamed. The adjacent liver is normal in appearance. There is some fullness in the retroperitoneum consistent with pancreatitis. The patient has a moderate-sized umbilical hernia. PROCEDURE IN DETAIL: The patient was taken to the operating room. He was given general endotracheal anesthesia, and the abdomen was sterilely prepped and draped. A supraumbilical curvilinear incision was made. This was carried down to the underlying fascia. The umbilical hernia sac was identified. This was carefully from the surrounding subcutaneous tissue and also sharply dissected off the skin of the umbilicus, and the sac was opened and found to be empty. The sac was then amputated at the level of the fascia with cautery. The peritoneal cavity was directly visualized and the 12 mm trocar was then carefully inserted under direct visualization through the hernia defect. The abdomen was insuflated to a pressure of 15mm Hg. The balloon was inflated. Intraabdominal inspection was carried out using a 5 mm variable angle laparoscopic camera. Additional 5 mm trocars were placed in the subxiphoid midline and in 2 areas of the right abdomen. All trocar sites were infiltrated with Marcaine prior to incision. Intraabdominal inspection was carried out and attention was turned to the gallbladder. The gallbladder was obscured by a large amount of omentum and fatty tissue as well as retroperitoneal swelling; but carefully with gallbladder retraction and tilting of the operating table, the lower part of the gallbladder was eventually able to be exposed. Once exposed, the fatty tissue overlying the cystic duct was carefully cleared, and the cystic duct and gallbladder junction identified. The cystic duct was then doubly clipped and divided near the gallbladder with great care being used to avoid injury to the common bile duct. Additional dissection of the triangle of Calot identified the cystic artery, and this too was doubly clipped and divided near the gallbladder. With careful additional dissection, the lower part of the gallbladder was eventually freed from the liver, and gradually the gallbladder was dissected free from the undersurface of the liver using the hook cautery device. Once the gallbladder had been completely freed, it was extracted without difficulty through the umbilical trocar site. Reinspection of the gallbladder bed was performed. Full hemostasis was assured with the use of cautery. Careful examination showed no sign of any complication. The area was copiously irrigated and then the trocars were removed under direct visualization. The fascia of the umbilical hernia site, which was also the trocar site was then reapproximated in a transverse orientation with interrupted 0 Vicryl using [id number] suture pattern. The wounds were irrigated with Betadine and saline solution. Skin incisions were approximated with interrupted 4-0 Vicryl in a subcuticular stitch. Steri-Strips and benzoin were applied. Antibiotic ointment and sterile dressings were placed. The patient was awakened, extubated, and taken from the operating room in satisfactory condition. ESTIMATED BLOOD LOSS: 50 mL. COMPLICATIONS: None. PROGNOSIS: Good. /[id number] TIKI/SHAWN [place]
[2018-12-07] MEDS ORDERED: Rosuvastatin 10 MG Tab PO SCH (09:00)
[2018-12-07] MEDS ORDERED: Lactated Ringers 1,000 ML IV SCH (12:45)
== END 2018-12-06 19:50 | disposition home or self-care (01) | DRG 263 ==
LOC: FB.ED 07:26 → UNDOADMOB 10:35 → FB.MS 10:35
PROVIDERS: ADMIT Family Medicine; ATTEND Family Medicine
PROC: 0FT44ZZ Resection of Gallbladder, Percutaneous Endoscopic Approach (ICD-10-PCS; principal; 2018-12-06)
PROC: 0WQF4ZZ Repair Abdominal Wall, Percutaneous Endoscopic Approach (ICD-10-PCS; 2018-12-06)
DX: K85.10 Biliary acute pancreatitis without necrosis or infection (principal); K80.20 Calculus of gallbladder without cholecystitis without obstruction; Z51.5 Encounter for palliative care; K42.9 Umbilical hernia without obstruction or gangrene; K76.0 Fatty (change of) liver, not elsewhere classified; I10 Essential (primary) hypertension; E11.9 Type 2 diabetes mellitus without complications; Z72.89 Other problems related to lifestyle; E78.5 Hyperlipidemia, unspecified; K21.9 Gastro-esophageal reflux disease without esophagitis; M19.90 Unspecified osteoarthritis, unspecified site; F32.9 Major depressive disorder, single episode, unspecified; Z79.84 Long term (current) use of oral hypoglycemic drugs; E66.9 Obesity, unspecified; N42.9 Disorder of prostate, unspecified; Z87.891 Personal history of nicotine dependence; Z96.619 Presence of unspecified artificial shoulder joint; R91.1 Solitary pulmonary nodule; M87.9 Osteonecrosis, unspecified; Z88.8 Allergy status to other drugs, medicaments and biological substances
CPT/HCPCS: 36415; 74177; 76705; 80048; 80053; 80076; 82150; 82962; 83605; 85025; 85610; 88304; 93005; 94150; 96361; 96374; 96375; 96376; 99285-25; A9270-GY; C9113; G0378; G0480; J0330; J0690; J1100; J1650; J1885; J2250; J2270; J2405; J2704; J2710; J3010; J3490; J7030; J7120; Q9967

== ENCOUNTER 2021-01-27 12:11 | Observation (INO) | payer BC ==
[2021-01-27] MEDS ORDERED: Sodium Chloride 0.9% 10 ML Syringe FLUSH PRN (12:57)
[2021-01-27] MEDS ORDERED: Ondansetron 4 MG/2 ML SDV IVPUSH PRN (12:57)
[2021-01-27] MEDS: Sodium Chloride 0.9% 1,000 ML IV SCH ×3 (13:00→23:15)
[2021-01-27] MEDS ORDERED: Glucagon,Human Recombinant 1 MG Vial IM PRN ×2 (13:04→13:39)
[2021-01-27] MEDS ORDERED: 50% Dextrose in Water 50 ML Syringe IVPUSH PRN ×2 (13:04→13:39)
[2021-01-27] MEDS ORDERED: Insulin Lispro 100 Unit/ML 3 ML KwikPen SUBCUT SCH (13:06)
[2021-01-27] MEDS ORDERED: Insulin Lispro 100 Unit/ML 3 ML KwikPen SUBCUT ONE ×3 (14:08→17:42)
[2021-01-27] MEDS ORDERED: Insulin Glargine,Human Rec. Analog 100 Units/ML 3 ML Pen SUBCUT ONE (14:58)
[2021-01-27] MEDS: Insulin Glargine,Human Rec. Analog 100 Units/ML 3 ML Pen SUBCUT SCH (15:03)
[2021-01-27] MEDS: Enoxaparin 40 MG/0.4 ML Syringe SUBCUT SCH (15:14)
[2021-01-27] MEDS: Insulin Lispro 100 Unit/ML 3 ML KwikPen SUBCUT SCH ×2 (17:52→22:03)
[2021-01-28] MEDS: Insulin Lispro 100 Unit/ML 3 ML KwikPen SUBCUT SCH ×5 (01:56→22:02)
[2021-01-28] MEDS: Sodium Chloride 0.9% 1,000 ML IV SCH ×2 (04:16→09:30)
[2021-01-28 08:09] LABS: HEMOGLOBIN A1C 12.4 % (<5.7)
[2021-01-28] MEDS ORDERED: 50% Dextrose in Water 50 ML Syringe IVPUSH PRN ×2 (09:08→21:58)
[2021-01-28] MEDS ORDERED: Glucagon,Human Recombinant 1 MG Vial IM PRN ×2 (09:08→21:58)
--- NOTE | 2021-01-28 09:38 | PN ---
DATE SEEN: 01/28/2021 SUBJECTIVE: Philip Madrigal is a 65-year-old gentleman seen today for review. Admitted yesterday with severe hyperglycemia. He has been well hydrated overnight and feeling better. Output has been very minimal, only 600 mL. Sugars have declined; 527, 458, 370, 235, and 260. Creatinine fell from 2.1 to 1.4. GFR tao from 32 to 51. Feeling better this morning. PHYSICAL EXAMINATION: VITAL SIGNS: 37.2, 58, 140/64, 16, and 96. GENERAL: Appears better. HEENT: Mouth and oropharynx, good hydration. NECK: Benign. Thyroid small. CHEST: Clear in all lung riddle. HEART: No ectopy or murmur. ABDOMEN: Rotund. ASSESSMENT: Hyperglycemia, improving. PLAN: Medications on board; metformin, Trulicity, and Lantus not going to work. We will switch to mixed insulin 70/30, complementary care and well being observant through the night. Ultrasound will be performed due to mildly elevated liver enzymes. /[id number] DELORIS/SHAWN
[2021-01-28] MEDS ORDERED: Insulin Lispro Protamine/Lispro 75-25 100 Units/ML 3 ML KwikPen SUBCUT ONE (09:49)
[2021-01-28] MEDS: Insulin Lispro Protamine/Lispro 75-25 100 Units/ML 3 ML KwikPen SUBCUT SCH (09:53)
[2021-01-28] MEDS: Chlorthalidone 25 MG Tab PO SCH (10:02)
[2021-01-28] MEDS: Atenolol 50 MG Tab PO SCH (10:04)
[2021-01-28] MEDS: Benazepril 10 MG Tab PO SCH (10:05)
[2021-01-28] MEDS: Venlafaxine 150 MG Cap.ER PO SCH (10:05)
[2021-01-28] MEDS: amLODIPine 2.5 MG Tab PO SCH (10:06)
--- NOTE | 2021-01-28 12:27 | HP ---
ADMISSION DATE: 01/27/2021 REASON FOR VISIT: Marked hyperglycemia. HISTORY OF PRESENT ILLNESS: Philip Madrigal is a 65-year-old male, admitted directly to [facility]. Had been seen by Dr. Linares and associates at [facility] in [place]. Blood sugar was near 600. Has probably 5-year history of diabetes, uncertain of the exact date, but 5-year history. He has been on a host of medications with lack of commitment. He had been on increasing doses of metformin 1000 b.i.d. and tolerated, had decreased to 500 b.i.d., but was only taking 1 daily. Was recently started on Trulicity once per week, had significant nausea, early satiety, not eating, and decrease in fluids and hydration, a 15-pound weight loss. Has not been checking sugars at home with any significance. Was seen at the clinic, was found to be likely dehydrated. Admission to hospital was indicated. MEDICATIONS: Daily medications include: 1. Amlodipine/benazepril 2.5, one p.o. daily, blood pressure. 2. Vitamin C 500 mg 1 p.o. daily, nutrition. 3. Vitamin B 2000 mg daily, nutrition. 4. Trulicity 0.75 mg daily, NIDDM. 5. [place]-3 fish oil 1000 mg daily, nutrition. 6. Metformin, reported 1000 mg daily, but only taking 500 mg daily. 7. Tamsulosin 0.4 mg, BPH. 8. Tenoretic 100 half tab daily, heart/blood pressure. 9. Refresh eye drops. 10.Vitamin D3 1000 units daily, nutrition. 11.Flonase 2 puffs each nostril 1 daily, allergies. 12.Pravastatin 30 mg 1 p.o. daily, GERD. 13.Atorvastatin 20 mg 1 p.o. daily, hyperlipidemia. 14.Effexor 150, one daily, mood stabilizer. ALLERGIES: Indomethacin. PAST MEDICAL HISTORY: Significant for umbilical hernia, cholecystectomy repair. He has also had a right rotator cuff tear. Has had also left knee scope. Bilateral cataract surgery. No other operative procedures, hospitalizations, unusual childhood diseases, major injuries, or fractures. Chronic treating illnesses include hyperlipidemia, hypertension, and diabetes mellitus. SOCIAL HISTORY: Works for [employer]. 65. One daughter. No grandchildren. Nonsmoker. No alcohol. Occasional chewing. Light beer intake. FAMILY HISTORY: Noncontributory. REVIEW OF SYSTEMS: CONSTITUTIONAL: Feeling a little poorly. EYES: Sees well. EARS: Difficulty in crowds. OROPHARYNX: Intact dentition. GI: Bowels have been fine. No blood in stools. stools. : Voiding comfortably. Nocturia x1. CV: Denies chest pain, palpitations, syncope. RESPIRATORY: No chronic cough. SKIN: No lesions, eruptions, or moles. ENDOCRINE: No excessive thirst or urination. ALLERGIES: Indocin. ORTHOPEDIC: Generalized aches and pains. PSYCHIATRIC: Mood stable. PHYSICAL EXAMINATION: VITAL SIGNS: 1.65 m, 91.61 kg, 37.3 degrees Fahrenheit, pulse 66, blood pressure 112/76, 16, 98%. GENERAL: Middle-aged gentleman, appropriate, cooperative. HEENT: Funduscopic benign. Conjunctivae clear. Bright tympanic membranes. Decreased hearing. Clear nasal discharge. Mouth and oropharynx: Clear. Tongue midline. Good gag reflex. NECK: Benign. Thyroid small. No adenopathy. No carotid bruits. CHEST: On auscultation, clear all lung riddle. HEART: On auscultation, occasional ectopy. No murmur of significance. ABDOMEN: Benign. Surgical scars healed. and RECTAL: Deferred. EXTREMITIES: Well perfused. NEUROMUSCULAR: Intact. PSYCHIATRIC: Mood was stable. LABORATORY STUDIES: White count 8,700, hemoglobin 12.8, hematocrit 38.0. Creatinine 2.1, GFR 32, glucose 527. Mildly elevated AST and ALT, alkaline phosphatase. Ultrasound to be performed. ASSESSMENT: Complicated hyperglycemia. With dehydration, no signs of ketoacidosis. PLAN: Fluids, hydration, medication adjustments, intervention and care, proceed accordingly. /[id number] /SHAWN
[2021-01-28] MEDS: Enoxaparin 40 MG/0.4 ML Syringe SUBCUT SCH (14:10)
--- NOTE | 2021-01-28 16:24 | US ---
INDICATION: Elevated liver enzymes. ABDOMEN ULTRASOUND COMPLETE: Multiple ultrasonic images were obtained 01/28/21 and compared with previous study of 12/04/18. The liver is heterogeneous and echogenic compatible with a fatty liver. The liver was measured at approximately 16 to 18.7 cm which suggests mild enlargement. The aorta is normal in caliber. The pancreas was very echogenic compatible with fatty replacement and was not ideally seen in the area of the tail due to overlying intestinal gas. The IVC was unremarkable as visualized. The spleen measured 11.4 cm and appeared normal. The kidneys appeared overall normal but showed some minimal irregularities of the cortices compatible with mild renal cortical scarring. The right kidney measured 11.7 x 6.3 x 6.7 cm. The left kidney measured 11.3 x 6.1 x 6.1 cm. Common bile duct was normal in caliber for post cholecystectomy patient measuring 5.9 mm. IMPRESSION: 1. Fatty liver somewhat prominent in size. 2. Post cholecystectomy. 3. Normal caliber common bile duct allowing for post cholecystectomy. 4. Fatty replaced pancreas with tail not well seen. 5. Minimal renal cortical scarring is suggested. MTDD
[2021-01-28] MEDS: Insulin Glargine,Human Rec. Analog 100 Units/ML 3 ML Pen SUBCUT SCH (17:01)
[2021-01-28] MEDS ORDERED: Insulin Lispro Protamine/Lispro 75-25 100 Units/ML 3 ML KwikPen SUBCUT SCH (18:00)
[2021-01-28] MEDS ORDERED: Tamsulosin 0.4 MG Cap.ER PO SCH (19:00)
[2021-01-28] MEDS ORDERED: Insulin Lispro 100 Unit/ML 3 ML KwikPen SUBCUT STA (21:58)
[2021-01-29] MEDS: Insulin Lispro 100 Unit/ML 3 ML KwikPen SUBCUT SCH ×3 (02:16→10:39)
[2021-01-29] MEDS: Venlafaxine 150 MG Cap.ER PO SCH (08:08)
[2021-01-29] MEDS: Chlorthalidone 25 MG Tab PO SCH (08:10)
[2021-01-29] MEDS: Atenolol 50 MG Tab PO SCH (08:11)
[2021-01-29 08:12] VITALS: BP 149/75; PULSE 62
[2021-01-29] MEDS: amLODIPine 2.5 MG Tab PO SCH (08:12)
[2021-01-29] MEDS: Benazepril 10 MG Tab PO SCH (08:12)
[2021-01-29] MEDS: Insulin Lispro Protamine/Lispro 75-25 100 Units/ML 3 ML KwikPen SUBCUT SCH (08:14)
[2021-01-29] MEDS ORDERED: Rosuvastatin 20 MG Tab PO SCH (09:00)
--- NOTE | 2021-01-29 13:57 | DISCH ---
DISCHARGE DATE: 01/29/2021 DISCHARGE DIAGNOSES: Complicated hyperglycemia, uncontrolled diabetes. Philip Madrigal is a 65-year-old male admitted in transfer from [facility] for direct admission. Has a history of 5 years duration give or take of diabetes. There had been some adjustments, recently been intolerance to metformin and intolerance to Trulicity with nausea, upset stomach, diarrhea, has provided a little in the way of compliance. Please see admitting history and physical. LABORATORY STUDIES: On admission revealed normal CBC, mildly reduced potassium, sodium 132, chloride 97, A1c 12.4. Obvious dehydration coming in. Works in a warm environment. Lost 15 pounds over the last month due to reduced eating, Trulicity with GI upset in early society. His GFR upon admission was 32, creatinine 2.1. He was given normal saline in generous quantities during his first 24 hours of hospital stay. Hydration improved, symptoms improved, but sugars which were near 600 on admission, continued to be markedly elevated. He was placed on sliding scale insulin, with moderate reductions in his sugars. Creatinine improved to 1.4. GFR went from 32 to 40 to 51. Hydration improved. It was elected, given circumstances in high A1c, intolerance of metformin and Trulicity, switched to insulin. Started on Humalog 75/25 initial day 20 and 10 units respectively morning and supper, increased to 28 and 14 morning and supper on the day of discharge. He was comfortable and well at the time of discharge. PHYSICAL EXAMINATION: VITAL SIGNS: 37.2, 149/75, 17, 96. Pulse 62. GENERAL: Comfortable, conversant. NECK: Benign. Thyroid small. CHEST: Clear in all lung riddle. HEART: No ectopy or murmur. ABDOMEN: Rotund. DISCHARGE PLANS: Humalog mix insulin 28 and 14 respectively. We will monitor his blood sugars 4 times per day. We will address sugars at 3-day intervals with Dr. Linares. Upcoming appointment with Dr. Linares in 2 weeks duration, timely visit with dietitian and software educator to be considered. SURGICAL PROCEDURES: None. CONSULTATIONS: None. DISCHARGE PLANNIN minutes. /[id number] /SHAWN
[2021-01-30] MEDS ORDERED: Insulin Lispro Protamine/Lispro 75-25 100 Units/ML 3 ML KwikPen SUBCUT SCH (08:00)
== END 2021-01-29 12:43 | disposition home or self-care (01) ==
LOC: FB.MS 12:11
PROVIDERS: ADMIT Family Medicine; ATTEND Family Medicine
DX: E11.65 Type 2 diabetes mellitus with hyperglycemia (principal); E86.0 Dehydration; Z79.899 Other long term (current) drug therapy; Z79.84 Long term (current) use of oral hypoglycemic drugs; Z88.8 Allergy status to other drugs, medicaments and biological substances; Z90.49 Acquired absence of other specified parts of digestive tract; Z98.890 Other specified postprocedural states
CPT/HCPCS: 36415; 76700; 80048; 80053; 82947; 83036; 85025; 93005; 96372; A9270-GY; G0378; J1650; J1815; J1815-GY; J7030